=== PATIENT | male | born 1955 | race Caucasian/White ===

== ENCOUNTER 2019-01-24 11:15 | Emergency (ER) | payer MEDICARE, SELFPAY ==
[2019-01-24] VITALS (9 sets, daily range): BP systolic 113–161; BP diastolic 74–93; PULSE 68–83; RESP 13–18; TEMP 36.9; O2SAT 95–99; BMI 30.5
--- NOTE | 2019-01-24 11:40 | CT_ITS ---
STUDY: CT BRAIN WITHOUT CONTRAST REASON FOR EXAM: Male, 63 years old. Headaches and double vision. Recent fall. RADIATION DOSAGE (If Supplied By Facility): CTDIvol = ( 44.99 ) mGy, DLP = ( 812.98 ) mGycm TECHNIQUE: Transaxial CT imaging of the brain was performed without administration of intravenous contrast material. Individualized dose optimization techniques were used for this CT. COMPARISON: Comparison is made with prior study dated November 04, 2009. FINDINGS: Normal soft tissue structures. Normal calvarium. Normal size ventricles and extra-axial spaces for the patient's age. Normal white matter tracts of the cerebral hemispheres. Stable tiny lacunar in the insular cortex of the left temporal lobe. Normal brainstem. Normal cerebellum. There is no intracranial hemorrhage. There are no findings of an acute ischemic infarction. Normal visualized paranasal sinuses. CT/Brain/Head without Contrast IMPRESSION: Stable tiny lacunar in the insular cortex of the left temporal lobe. Electronically Signed: Neymar Durand, at 12:43 EST , Service support ,
[2019-01-24 12:55] LABS: Absolute Lymphocyte Count 1.52 X10^3/ul (0.83-4.51); Absolute Neutrophil Count 3.8 X10^3/uL (2.0-7.7); Basophil# 0.02 X10^3/uL; Basophil% 0.3 % (0-1); Eosinophil# 0.06 X10^3/uL; Hemoglobin 14.3 g/dl (13.0-16.5); Lymphocyte # 1.52 X10^3/ul (4.0); Lymphocyte % 26.5 % (19-41); Mean Corp Hgb Conc 32.5 g/gl (32-36); Mean Corpuscular Hgb 29.9 pg (27.0-32.0); Mean Corpuscular Volume 92.1 fL (80-94); Mean Platelet Vol. 11.5 fl (6.2-12.0); Monocyte# 0.31 X10^3/uL; Monocyte% 5.4 % (0-10); Neutrophil # 3.81 X10^3/uL (2.7-7.7); Neutrophil % 66.6 % (47-70); Platelet Count 225 K/mm3 (150-450); RBC Distribution Width CV 15.8 % (11.6-14.6); RBC Distribution Width SD 53.4 fl (35.1-43.9); Red Blood Count 4.78 M/mm3 (4.6-6.2); White Blood Count 5.7 K/mm3 (4.4-11.0)
[2019-01-24 12:56] LABS: POSITIVE COUNT NO; POSITIVE DIFFERENTIAL NO; POSITIVE MORPHOLOGY NO
[2019-01-24 13:07] LABS: Anion Gap 9 (5-15); BUN 10 mg/dL (7-18); BUN/Creat Ratio 9.2 RATIO (10-20); Calcium,Total 8.8 mg/dL (8.5-10.1); Chloride 106 mmol/L (98-107); Creatinine, Serum 1.09 mg/dL (0.70-1.30); EST Glomerular Filtration Rate 73 mL/min (>60); Est Glom Filt Rate - Afr Amer 88 mL/min (>60); Estimated Creatinine Clearance 76.14 ml/min; Glucose 83 mg/dL (74-106); Potassium 4.2 mmol/L (3.5-5.1); Sodium Level 143 mmol/L (136-145)
[2019-01-24 13:36] LABS: Valproic Acid (Depakene) Level 72 ug/mL (50-100)
--- NOTE | 2019-01-24 15:10 | ED.DCSUM_ITS ---
- ER Visit Summary Date of Service: 01/24/19 Chief Complaint: Double vision History of Present Illness: The patient is a 63 M who tells me that approximately 2 weeks ago he fell and hit his head on some ice. No loss of consciousness. He states he was doing okay but a few days later began to have blurred vision. He went to the eye doctor and was prescribed glasses. He went to picker operator the glasses today but states that on his way there he had a drive with one eye closed because he was having double vision. When he got to their office he tells me that he was having a difficult time walking and that he was stumbling. He was advised by the eye doctor staff to go to the emergency room. He has a history of bipolar disorder is on Depakote. Physical Examination: Afebrile vital signs are stable Gen: Well-nourished well-developed Head: Normocephalic atraumatic Eyes: Perrl EOMI ENT: TMs clear no rhinorrhea moist mucous membranes Neck: Supple no lymphadenopathy no JVD nontender CVS: Regular rate rhythm no murmurs normal S1-S2 Respiratory: No distress clear to auscultation bilaterally chest nontender Abdomen: Soft nontender nondistended normal bowel sounds no masses Back: Nontender Extremity: Nontender no edema Skin: Normal color no rash Neuro: alert orientated ?3 CN II-XII intact normal strength sensation reflexes there is a slight ataxia with finger to nose but patient completes the task. Psych: Normal affect normal mood Test Results: CT brain shows no intracranial hemorrhage or fracture. CBC and chemistries were normal. Valproic acid 72. Emergency Department Course and Treatment: Patient was reassessed. His double vision has resolved. We got the patient up to walk him. He is doing better. I spoke with on-call neurology who would recommend a CTA of the head and neck and MRI of the brain. If negative patient will be discharged. Impression: 1. Postconcussive syndrome 2. Ataxia This note was generated with [employer] dictation software. It may contain incorrect words, spelling, and punctuation that were not noted in review of the chart prior to signing <Israel Dickerson - Last Filed: 01/24/19 16:20> - ER Visit Summary Date of Service: 01/24/19 The patient was checked out to me by Dr. Geller with CT and MRI pending. Test Results: CTA head shows no acute disease. CTA neck shows 50 to less than 50% stenosis of the right internal carotid artery. Minimal punctate plaque formation left internal carotid artery without stenosis. MRI of brain shows no acute disease. 5 mm avert Calderol been versus old lacunar infarct in the basal ganglia. Emergency Department Course and Treatment: Patient is resting comfortably without complaint. Treatment Plan: Patient will be discharged with instructions to follow-up his primary care physician 1 week for another exam. Return to the emergency department for any worsening symptoms. Disposition: To home in improved and stable condition. Impression: 1. Postconcussive syndrome. This note was generated with [employer] dictation software. It may contain incorrect words, spelling, and punctuation that were not noted in review of the chart prior to signing <Damian Pike - Last Filed: 01/24/19 18:52> ED Disposition <Israel Dickerson - Last Filed: 01/24/19 16:20> <Damian Pike - Last Filed: 01/24/19 18:52> - Plan for ED Patient: Disposition: Home or Assisted Living Instructions: ED Concussion Referrals: Husam Matt MD [STAFF PHYSICIAN] - As soon as possible
--- NOTE | 2019-01-24 15:49 | MRI_ITS ---
STUDY: MRI BRAIN WITHOUT CONTRAST REASON FOR EXAM: Male, 63 years old. Vertigo, diplopia TECHNIQUE: Standardized multiplanar fat and water weighted pulse sequences were obtained. COMPARISON: CT same day. FINDINGS: Normal size of the ventricles and extra-axial spaces for the patient's age. Normal white matter tracts of the supratentorial brain. There is no evidence for restricted diffusion. There is 5 mm small cystic density within the left basal ganglia. Normal thalami. There is no extra-axial fluid accumulation. Normal flow voids within the major intracranial circulation suggesting patency by spin echo criteria. Normal sella turcica, pituitary gland, infundibular stalk, optic chiasm and hypothalamus. Normal tectal plate and pineal gland. Normal midbrain, derek and medulla. Normal cerebellum. Normal basal cisterns. Normal bilateral temporal bones. Normal bilateral internal auditory canals. No demonstrated orbital abnormality, within the constraints of a routine brain study. Normal visualized paranasal sinuses. Normal calvarium and skull base. Normal visualized soft tissue structures. Normal visualized upper cervical spine. MRI/Brain without Contrast IMPRESSION: No MRI evidence for acute infarct 5 mm Virchow-Mendoza space versus old lacunar infarct within the basal ganglia Electronically Signed: Elier Rouse, at 18:06 EST Tel , Service support ,
--- NOTE | 2019-01-24 15:50 | CT_ITS ---
STUDY: CTA OF THE BRAIN REASON FOR EXAM: Male, 63 years old. Axial headaches intermittent double vision since fall 2 weeks ago RADIATION DOSAGE (If Supplied By Facility): CTDIvol = ( 23.92 ) mGy, DLP = ( 800.98 ) mGycm TECHNIQUE: CT angiography was performed with a multi-detector CT scanner. Data acquisition was obtained from the skull base through the vertex following intravenous administration of Isovue 370 100CC IV. MIP images were reconstructed from the axial data set. Post-processing of the angiographic images was performed, with multiplanar reformation and 3D reconstruction. Standard reconstructed images were requested but not provided. Individualized dose optimization techniques were used for this CT. COMPARISON: January 24, 2019 CT head FINDINGS: Normal bilateral petrous carotid arteries. Normal right cavernous carotid artery with a normal supraclinoid bifurcation. Normal left cavernous carotid artery with a normal supraclinoid bifurcation. Normal right A1 segments of the anterior cerebral artery. Normal left A1 segments of the anterior cerebral artery. Normal intact anterior communicating artery (ACOM). Normal bilateral A2 segments of the anterior cerebral arteries. Normal right M1 and M2 segments of the middle cerebral arteries, with a normal M1 bifurcation. Normal left M1 and M2 segments of the middle cerebral arteries, with a normal M1 bifurcation. 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 There is a persistent origin of the left posterior cerebral artery with absence of the posterior communicating artery (PCOM). Normal bilateral vertebral arteries. Normal basilar artery with a normal basilar bifurcation. The visualized bilateral superior cerebellar (SCA) arteries are normal. Normal bilateral P1, P2 and visualized P3 segments of the posterior cerebral arteries. There is no demonstrated aneurysm of the [place]. There is an old left-sided basal ganglia lacunar infarct. CT/CTA Head W/WO Contrast IMPRESSION: Normal [place] without a demonstrated aneurysm or hemodynamically significant stenosis. Electronically Signed: Zeinab Michael MD at 18:22 EST Tel , Service support ,
--- NOTE | 2019-01-24 15:50 | CT_ITS ---
STUDY: CTA NECK WITH CONTRAST REASON FOR EXAM: Male, 63 years old. Ataxia RADIATION DOSAGE (If Supplied By Facility): CTDIvol = ( 23.92 ) mGy, DLP = ( 800.98 ) mGycm TECHNIQUE: CT angiography with multi-detector data acquisition was performed from the aortic arch to the skull base following intravenous administration of Isovue 370 100cc IV. MIP images were reconstructed from the axial data set. Post-processing of the angiographic images was performed, with multiplanar reformation and 3D reconstruction. Individualized dose optimization techniques were used for this CT. COMPARISON: None. FINDINGS: AORTIC ARCH: Normal visualized aortic arch. Normal origins of the brachiocephalic, left common carotid, and left subclavian arteries. RIGHT CAROTID ARTERIES: Normal right common carotid artery (CCA). There is mild atherosclerotic plaque formation with minimal narrowing of the right carotid bulb. There is mild atherosclerotic plaque formation of the origin of the right internal carotid artery with less than 50% cross sectional diameter stenosis. Normal visualized cervical portion of the right internal carotid artery. Normal origin of the right external carotid artery (ECA). LEFT CAROTID ARTERIES: Normal left common carotid artery (CCA). There is mild atherosclerotic plaque formation with minimal narrowing of the left carotid bulb. Normal origin of the left internal carotid (ICA) artery without a hemodynamically significant stenosis. Normal visualized cervical portion of the left internal carotid artery. Normal origin of the left external carotid artery (ECA). VERTEBRAL ARTERIES: Normal bilateral vertebral arteries. There is visualized degenerative change in the cervical spine. There is a spinal fusion C4 C5 C6. CT/CTA Neck W/WO Contrast IMPRESSION: Less than 50% stenosis of the right internal carotid artery. Minimal punctate plaque formation without stenosis of the left internal carotid artery. Visualized cervical spine fusion C4-C6. Electronically Signed: Zeinab Michael MD at 17:15 EST Tel , Service support ,
== END 2019-01-24 19:12 | disposition home or self-care (01) ==
PROVIDERS: Emergency Provider Emergency Medicine; Family Provider Family Medicine; PCP Family Medicine
DX: F07.81 Postconcussional syndrome (principal); R27.0 Ataxia, unspecified; F31.9 Bipolar disorder, unspecified; K21.9 Gastro-esophageal reflux disease without esophagitis; Z91.81 History of falling
CPT/HCPCS: 70450; 70496; 70498; 70551; 80048; 80164; 85025; 99283; Q9967; A4216

== ENCOUNTER 2019-03-27 11:18 | Emergency (ER) | payer MEDICARE, SELFPAY ==
[2019-01-24 11:16] VITALS: BMI 30.5
[2019-03-27 11:19] VITALS: BP 146/102; PULSE 78; RESP 16; TEMP 36.8; O2SAT 98; BMI 29.8
--- NOTE | 2019-03-27 11:57 | RAD_ITS ---
STUDY: X-RAY CHEST REASON FOR EXAM: Male, 63 years old. Dizziness. TECHNIQUE: Single frontal view of the chest. COMPARISON: None. FINDINGS: There is no focal consolidation. Normal size heart. Normal mediastinum and juliane. Normal visualized pulmonary arteries. Normal visualized aortic arch and descending thoracic aorta. Normal visualized thoracic spine. Normal visualized ribs, clavicles, and shoulders. There is no demonstrated abnormality of the visualized soft tissue structures of the upper abdomen. RAD/Chest 1 View (Portable) IMPRESSION: No acute cardiopulmonary process. Electronically Signed: Nasrin Barnes MD at 12:21 EDT Tel , Service support ,
--- NOTE | 2019-03-27 11:57 | EKG12_ITS ---
Test Reason : DIZZINESS Blood Pressure : / mmHG Vent. Rate : 078 BPM Atrial Rate : 078 BPM P-R Int : 168 ms QRS Dur : 092 ms QT Int : 386 ms P-R-T Axes : 052 002 016 degrees QTc Int : 440 ms Normal sinus rhythm Inferior infarct , age undetermined Abnormal ECG Confirmed by PEDRO PABLO OSBORNE, STEPHON ([id number]), clinical editor COLE SALEH ([id number]) on 04/01/2019 1:53:30 PM Referred By: ENEIDA Confirmed By:STEPHON CHAMORRO MD
--- NOTE | 2019-03-27 11:58 | CT_ITS ---
STUDY: CT BRAIN WITHOUT CONTRAST REASON FOR EXAM: Male, 63 years old. Dizziness. RADIATION DOSAGE (If Supplied By Facility): CTDIvol = ( 60.81 ) mGy, DLP = ( 1067.08 ) mGycm TECHNIQUE: Transaxial CT imaging of the brain was performed without administration of intravenous contrast material. Individualized dose optimization techniques were used for this CT. COMPARISON: January 24, 2019 FINDINGS: Normal soft tissue structures. Normal calvarium. Normal size ventricles and extra-axial spaces for the patient's age. Normal white matter tracts of the cerebral hemispheres. There is a stable low-attenuation focus within the left basal ganglia. Normal brainstem. Normal cerebellum. There is no intracranial hemorrhage. There are no findings of an acute ischemic infarction. There is mild opacification of the left sphenoid and ethmoid sinuses. CT/Brain/Head without Contrast IMPRESSION: No acute intracranial process. Stable low-attenuation focus within the left basal ganglia consistent with a Virchow-Mendoza space or an old lacunar infarct . Mild opacification of the sphenoid and ethmoid sinuses consistent with a history of sinusitis. Electronically Signed: Nasrin Barnes MD at 13:14 EDT Tel , Service support ,
--- NOTE | 2019-03-27 12:22 | ED.VISSUMM ---
- ER Visit Summary Date of Service: 03/27/19 Chief Complaint: [] Intermittent dizziness for months History of Present Illness: The patient is a 63 M [] patient has a history of head injury in the winter where he fell hit his head he was seen and evaluated with CT scan later MRI of the work-up and scans are unremarkable since that time he indicates he has had intermittent sense of dizziness where he suddenly began spinning sometimes falling to the ground these occur 2 or 3 times a month they can last for a few days he does have bipolar disease he was started on Depakote yesterday first dose was today, he is otherwise not been ill he had no fever no cough no head neck chest or abdominal pain, He reports since yesterday he had a sense of dizziness where when he tries to stand he feels slightly unsteady he fell once he did not injure himself his dizzy spells persisted and he came into trip for evaluation, he does not hit his head he has not been ill in any other way he said no fever no cough he is eating drinking well bowel bladder habits unremarkable no history of stroke or cardiovascular disorder his bipolar disease is stable Physical Examination: [] Vital signs within normal range General, no distress resting comfortably HEENT is generally unremarkable The neck is supple no adenopathy Cardiovascular, regular rate and rhythm Lungs, clear bilateral Abdomen, soft nontender Extremities, no clubbing cyanosis or edema Neurologic, awake alert answering questions appropriately moving all 4 extremities, cranial nerves are normal, no nystagmus with head movement he has full range of motion of his extremities sensations intact speech cognition normal his NIH is 0 Test Results: [] Emergency Department Course and Treatment: [] He assures me he has had this multiple times in the past since the fall he has not followed up with outpatient providers he does have walking devices at home he supposed to use for this process, given all the above screening labs are obtained head CT Treatment Plan: [] Patient screening labs head CT are negative he did have extensive prior imaging in the computer including multiple MRIs are unremarkable, His physical exam neurologically unremarkable for him unchanged, Discussed with the patient at this point time his symptoms are something is had long-standing he has been asked to follow-up with his primary care providers he is referred to neurology he will use a cane his walking devices to avoid falling and keep all of his appointment with his providers and return for change in symptoms Disposition: [] Stable home Impression: [] Acute recurrent dizziness This note was generated with [employer] dictation software. It may contain incorrect words, spelling, and punctuation that were not noted in review of the chart prior to signing ED Disposition - Plan for ED Patient: Referrals: Fabián Hurley [Primary Care Provider] -
[2019-03-27] MEDS: 0.9% Normal Saline 1,000 ML 1000 ML IV (12:36)
[2019-03-27 12:48] LABS: Absolute Lymphocyte Count 2.21 X10^3/ul (0.83-4.51); Absolute Neutrophil Count 3.8 X10^3/uL (2.0-7.7); Basophil# 0.03 X10^3/uL; Basophil% 0.5 % (0-1); Eosinophil# 0.11 X10^3/uL; Eosinophils% 1.7 % (0-5); Hematocrit 44.7 % (40-54); Hemoglobin 15.1 g/dl (13.0-16.5); Lymphocyte # 2.21 X10^3/ul (4.0); Lymphocyte % 33.6 % (19-41); Mean Corp Hgb Conc 33.8 g/gl (32-36); Mean Corpuscular Hgb 30.9 pg (27.0-32.0); Mean Corpuscular Volume 91.4 fL (80-94); Mean Platelet Vol. 11.4 fl (6.2-12.0); Monocyte# 0.46 X10^3/uL; Neutrophil # 3.75 X10^3/uL (2.7-7.7); Platelet Count 244 K/mm3 (150-450); RBC Distribution Width CV 15.6 % (11.6-14.6); RBC Distribution Width SD 52.6 fl (35.1-43.9); Red Blood Count 4.89 M/mm3 (4.6-6.2); White Blood Count 6.6 K/mm3 (4.4-11.0)
[2019-03-27 12:51] LABS: POSITIVE COUNT NO; POSITIVE DIFFERENTIAL NO; POSITIVE MORPHOLOGY NO
[2019-03-27 13:11] LABS: Anion Gap 6 (5-15); BUN 10 mg/dL (7-18); BUN/Creat Ratio 9.4 RATIO (10-20); Calcium,Total 9.1 mg/dL (8.5-10.1); Chloride 105 mmol/L (98-107); Creatinine, Serum 1.06 mg/dL (0.70-1.30); EST Glomerular Filtration Rate 75 mL/min (>60); Est Glom Filt Rate - Afr Amer 91 mL/min (>60); Estimated Creatinine Clearance 78.29 ml/min; Glucose 80 mg/dL (74-106); Potassium 4.4 mmol/L (3.5-5.1); Sodium Level 142 mmol/L (136-145)
[2019-03-27 13:23] LABS: Valproic Acid (Depakene) Level 66 ug/mL (50-100)
--- NOTE | 2019-03-27 15:10 | ED.DEP ---
ED Disposition - Plan for ED Patient: Instructions: ED Dizziness [facility] Referrals: Fabián Hurley [Primary Care Provider] - Jignesh Redding MD [STAFF PHYSICIAN] -
[2019-03-27 15:51] VITALS: BP 170/92; PULSE 79; RESP 15; O2SAT 98
== END 2019-03-27 15:52 | disposition home or self-care (01) ==
LOC: ED 13:36
PROVIDERS: Emergency Provider Emergency Medicine; Family Provider Family Medicine; PCP Family Medicine
DX: R42 Dizziness and giddiness (principal)
CPT/HCPCS: 70450; 71045; 80048; 80164; 84484; 85025; 93005; 99284

== ENCOUNTER 2021-02-03 07:59 | Outpatient (RCR) | payer MEDICARE, SELFPAY ==
[2021-02-03] MEDS: COVID-19 VACC, MRNA(PFIZER)/PF 30 MCG/0.3 ML SYRINGE IM (16:24)
[2021-02-24] MEDS: COVID-19 VACC, MRNA(PFIZER)/PF 30 MCG/0.3 ML SYRINGE IM (16:08)
== END 2021-05-03 23:59 ==
LOC: IMMUN 07:59
PROVIDERS: PCP Family Medicine; Referring Provider Family Medicine; Visit Provider Family Medicine
DX: Z23 Encounter for immunization (principal)
CPT/HCPCS: 0001A; 0002A; 91300

== ENCOUNTER 2022-09-22 08:37 | Day surgery (SDC) | payer MEDICARE, SELFPAY ==
[2022-09-22] VITALS (10 sets, daily range): BP systolic 123–150; BP diastolic 79–95; PULSE 70–100; RESP 16–19; TEMP 36.6–37.4; O2SAT 97–100; BMI 20.3
--- NOTE | 2022-09-22 | ESO_PTH ---
PATIENT: SADIQ YI Jr. LOC: [facility] [place] U[place][id number] AGE/SX: 66/M ROOM: RE09/22/[address]: Dr. Lior Lira DO : 1955 BED: DIS: 09/22/2022 SPEC #: [id number] RECD: 09/22/22 17:37 STATUS: EDDIE REQ #: [id number] MEGAN: 09/22/22 00:[address]: Lior Lira DEPT: SURGICAL PATHOLOGY RECD BY: Trip Stone ENTERED: 09/25/22 07:23 SP TYPE: [place]ENCA DR: Dr. Fabián Hurley DO Tissues: Esophagus, NOS Procedures: Special Stain Group II Special Stain Group I Surgery Specimen Level IV GMS Stain (control) Alcian Blue/PAS (control) HEADER OPERATION: EGD (MAC), removal foreign body PRE-OP DIAGNOSIS: Foreign body TISSUE SUBMITTED: Distal esophagus biopsy MICROSCOPIC DIAGNOSIS Distal esophagus, biopsy: Gastroesophageal junctional mucosa with ulceration and associated acute and chronic inflammation and fibrinopurulent material. Negative for fungal organisms. No evidence of goblet cell metaplasia. See comment. AM:bethel 09/26/2022 COMMENT GMS stain with matched control was used in the evaluation of this case. Alcian blue/PAS stain with matched control supports the above diagnosis. MICROSCOPIC DESCRIPTION Slides are reviewed. GROSS DESCRIPTION Received in fixative is one container labeled with the patient's name and designated distal esophagus. The specimen consists of multiple irregular fragments of light rashid soft tissue that in aggregate measure 1 x 0.3 x 0.1 cm. The specimen is totally submitted in one cassette. / AM:bethel 09/25/2022 TC:2 CPT: 73096, 21092, 55596
--- NOTE | 2022-09-22 09:37 | EDS_ITS ---
HPI HPI - GI History of Present Illness Chief Complaint: Foreign Body Informant: patient Abdominal Pain/Flank Pain Onset: Yesterday Context: Sudden Onset Timing: Continuous Quality: Sharp Location: - (Chest) Worsened by: Food Relieved by: Nothing Nausea/Vomiting/Emesis GI Symptom: Positive for Nausea and Vomiting Diarrhea/Melena/Hematochezia GI Symptom: Negative for Diarrhea, Melena or Hematochezia Associated Symptoms Associated Symptoms: Negative for Dysuria, Frequency or Hematuria Narrative Narrative: Patient presents with esophageal foreign body that began last night. Patient states he felt like food got stuck while he was eating dinner last night. Patient states he has had this happen to him in the past. Patient states he last saw a safe and vault installer in [place]. Patient does not have a safe and vault installer here. Patient states his pain is worse with swallowing. Patient states he has been having some nausea and vomiting but still feels like there is food stuck in his esophagus. Patient describes the pain as sharp. Patient denies any fevers or chills. Patient denies any shortness of breath. PFSH PFS Medical History (Updated 09/22/22 @ 11:[address] Vargas Meyer DO) Bipolar disorder Home Medications lamotrigine 200 mg tablet 200 mg PO BID 03/27/19 [History Last Taken Unknown] lorazepam 1 mg tablet See Rx Instructions .Route .COMPLEX PRN Anxiety 03/27/19 [History Last Taken Unknown] trazodone 100 mg tablet 100 mg PO QHS 03/27/19 [History Last Taken Unknown] benztropine 1 mg tablet 1 mg PO BID 09/22/22 [History Last Taken Unknown] olanzapine 15 mg tablet 10 mg PO DAILY 09/22/22 [History Last Taken Unknown] Allergy/AdvReac Type Severity Reaction Status Date / Time No Known Allergies Allergy Verified 09/22/22 08:37 Surgical History History of back surgery Hx of neck surgery Hx of total knee replacement Status post ORIF of fracture of ankle Social History Smoking Status: Former smoker ROS ROS ED Constitutional Constitutional ED: Denies chills or fever(s) Eyes Eyes: Denies blurry vision or change in vision ENT ENT ED: Reports rhinorrhea; Denies sore throat Cardiovascular Cardiovascular: Reports chest pain; Denies palpitations Respiratory/Chest Respiratory/Chest: Denies cough or dyspnea Gastrointestinal Gastrointestinal: Reports nausea and vomiting Genitourinary Genitourinary ED: Denies dysuria or hematuria Musculoskeletal Musculoskeletal: Denies back pain or neck pain Integumentary Denies abscess or rash Neurologic Neurologic: Denies headache(s) or weakness Allergic/Immunologic Allergic/Immunologic ED: Denies mouth swelling or urticaria EXAM Physical Exam Const Vital Signs: 09/22/22 08:38 09/22/22 10:30 Temperature 97.8 F Temperature Source Temporal Pulse Rate 100 78 Respiratory Rate 16 17 Blood Pressure 124/85 H 123/81 H Blood Pressure Mean 98 95 Pulse Ox 97 98 Oxygen Delivery Method Room Air Room Air Positive well nourished and well developed General Appearance ED: well developed HEENT Reports moist mucous membranes Neck supple and no JVD Resp normal respiratory effort and clear to auscultation bilaterally Cardio regular rate, regular rhythm and no murmurs GI normal to inspection, nondistended, normoactive bowel sounds and non-tender Palpation: soft Extremity normal to inspection General Extremety ED: Negative for edema or tenderness General Extremity: Negative for edema Neuro oriented x3, CN's II-XII intact bilaterally and no sensory deficits noted Sensorium / Orientation: alert Motor Exam: strength 5/5 throughout Psych mental status grossly normal Skin no rashes or lesions noted MDM MDM MDM Narrative Medical decision making narrative: Patient was given a dose of glucagon here. CBC was within normal limits. Comprehensive metabolic profile was essentially within normal limits. Portable chest x-ray was obtained. There is 1 view. On my interpretation, there is no acute cardiopulmonary process. There is some hyperinflation noted. Radiologist also interpreted the x-rays and agrees. Patient states he started to feel better after the glucagon. Patient tried to drink water and then vomited it back up. Case was discussed with Dr. Lira from gastroenterology. He will take the patient to endoscopy for an upper endoscopy. Patient understood and was agreeable with the plan. All questions were answered. Lab Data Attestation: I reviewed the patient's lab results. Labs: Laboratory Results - last 24 hr 09/22/22 09/22/22 09:30 09:30 WBC 8.0 RBC 4.81 Hgb 15.0 Hct 43.1 MCV 89.6 MCH 31.2 MCHC 34.8 RDW Std Deviation 47.7 H RDW Coeff of Caro 14.5 Plt Count 254 MPV 11.9 Immature Gran % (Auto) 0.200 Neut % (Auto) 81.0 H Lymph % (Auto) 13.5 L Dodge % (Auto) 4.7 Eos % (Auto) 0.1 Baso % (Auto) 0.5 Absolute Neuts (auto) 6.5 Absolute Lymphs (auto) 1.08 Nucleated RBC % 0 Sodium 143 Potassium 3.8 Chloride 106 Carbon Dioxide 27.0 Anion Gap 10 BUN 27 H Creatinine 1.19 Estim Creat Clear Calc 58.73 Est GFR (MDRD) Af Amer 79 Est GFR (MDRD) Non-Af 65 BUN/Creatinine Ratio 22.7 H Glucose 96 Calcium 9.5 Total Bilirubin 0.70 AST 15 ALT 19 Alkaline Phosphatase 67 Total Protein 7.9 Albumin 4.2 Globulin 3.7 Albumin/Globulin Ratio 1.1 Radiography Diagnostic Testing: Clinical Impression(s) from Imaging Studies Chest X-Ray 09/22/22 10:10 IMPRESSION: Hyperinflation. The lungs are clear. Electronically Signed: Neymar Durand MD at 10:35 EDT , Discharge Plan Triage Chief Complaint: Foreign Body ED Provider: Vargas Meyer Dx/Rx/DC Orders Clinical Impression: Food impaction of esophagus Prescriptions: No Action lamotrigine 200 MG tablet 200 mg PO BID trazodone 100 MG tablet 100 mg PO QHS lorazepam 1 MG tablet See Rx Instructions .ROUTE .COMPLEX PRN (Reason: Anxiety) Rx Instructions: 1 mg qhs on tues, thurs, sat 0.5 mg sun, mon, fri none on sun olanzapine 15 mg tablet 10 mg PO DAILY benztropine 1 mg Tablet 1 mg PO BID Primary Care Provider: Fabián Hurley Referrals: Fabián Hurley DO [Primary Care Provider] - Friend,DO Lior [Med Staff - Active Staff] - 1-2 Weeks Disposition Disposition: Home, Self Care
[2022-09-22 09:56] LABS: Absolute Lymphocyte Count 1.08 X10^3/uL (0.83-4.51); Absolute Neutrophil Count 6.5 X10^3/uL (2.0-7.7); Basophil# 0.04 X10^3/uL; Basophil% 0.5 % (0-1); Eosinophil# 0.01 X10^3/uL; Eosinophils% 0.1 % (0-5); Hematocrit 43.1 % (40-54); Lymphocyte # 1.08 X10^3/ul (0.83-4.51); Lymphocyte % 13.5 % (19-41); Mean Corp Hgb Conc 34.8 g/dL (32-36); Mean Corpuscular Hgb 31.2 pg (27.0-32.0); Mean Corpuscular Volume 89.6 fL (80-94); Mean Platelet Vol. 11.9 fl (6.2-12.0); Monocyte# 0.38 X10^3/uL; Monocyte% 4.7 % (0-10); NRBC Flagged by Analyzer 0 % (0-5); Neutrophil # 6.49 X10^3/uL (2.7-7.7); Platelet Count 254 K/mm3 (150-450); RBC Distribution Width CV 14.5 % (11.6-14.6); RBC Distribution Width SD 47.7 fl (35.1-43.9); Red Blood Count 4.81 M/mm3 (4.6-6.2)
[2022-09-22] MEDS: Glucagon 1 MG/ML Syringe IV (09:59)
[2022-09-22 10:09] LABS: ALB/GLOB Ratio 1.1 RATIO (0.9-2.4); AST(SGOT) 15 U/L (15-37); Alanine Aminotransfer ALT/SGPT 19 U/L (16-61); Albumin, Serum 4.2 g/dL (3.2-5.0); Alkaline Phosphatase 67 U/L (45-117); Anion Gap 10 (5-15); BUN 27 mg/dL (7-18); BUN/Creat Ratio 22.7 RATIO (10-20); Calcium,Total 9.5 mg/dL (8.5-10.1); Chloride 106 mmol/L (98-107); Creatinine, Serum 1.19 mg/dL (0.70-1.30); EST Glomerular Filtration Rate 65 mL/min (>60); Est Glom Filt Rate - Afr Amer 79 mL/min (>60); Estimated Creatinine Clearance 58.73 ml/min; Globulin 3.7 g/dL (2.2-4.2); Glucose 96 mg/dL (74-106); Potassium 3.8 mmol/L (3.5-5.1); Protein, Total 7.9 g/dL (6.4-8.2); Sodium Level 143 mmol/L (136-145)
--- NOTE | 2022-09-22 10:10 | RAD_ITS ---
STUDY: X-RAY CHEST REASON FOR EXAM: Male, 66 years old. Chest pain TECHNIQUE: Single AP portable view of the chest. COMPARISON: Comparison is made with prior examination of 03/27/2019. FINDINGS: EKG electrodes are seen. There is hyperinflation of the lungs consistent with chronic obstructive lung disease (COPD). There is no demonstrated pleural abnormality. Normal size heart. Normal mediastinum and juliane. Normal visualized pulmonary arteries. There is atherosclerotic calcification of the aortic arch with tortuosity. There are diffuse degenerative changes of the visualized thoracic spine. Normal visualized ribs, clavicles, and shoulders. There is no demonstrated abnormality of the visualized soft tissue structures of the upper abdomen. RAD/Chest 1 View (Portable) IMPRESSION: Hyperinflation. The lungs are clear. Electronically Signed: Neymar Durand MD at 10:35 EDT ,
--- NOTE | 2022-09-22 12:45 | ED.RN ---
AC updated this RN that pt.'s endoscopy is estimated to be done after office hours at approx. 1600.
[2022-09-22] MEDS: Lactated Ringers 1,000 ML 15 ML IV (14:18)
--- NOTE | 2022-09-22 17:26 | OP.EGD_ITS ---
Patient Name: Isaiah Burton Procedure Date: 09/22/2022 3:44 PM Date of : 1955 Age: 66 Procedure: Upper GI endoscopy Indications: Dysphagia Providers: Lior Lira DO Medicines: Monitored Anesthesia Care Patient Profile: This is a 66 year old male. Refer to note in patient chart for documentation of history and physical. Patient has symptoms of acute dysphagia. Complications: No immediate complications. Procedure: Pre-Anesthesia Assessment: - Prior to the procedure, a History and Physical was performed, and patient medications and allergies were reviewed. The risks and benefits of the procedure and the sedation options and risks were discussed with the patient. All questions were answered and informed consent was obtained. Patient identification and proposed procedure were verified by the physician in the pre-procedure area. Mental Status Examination: alert and oriented. Airway Examination: normal oropharyngeal airway and neck mobility. Respiratory Examination: clear to auscultation. CV Examination: normal. Prophylactic Antibiotics: The patient does not require prophylactic antibiotics. Prior Anticoagulants: The patient has taken no previous anticoagulant or antiplatelet agents. After reviewing the risks and benefits, the patient was deemed in satisfactory condition to undergo the procedure. The anesthesia plan was to use monitored anesthesia care (MAC). Immediately prior to administration of medications, the patient was re-assessed for adequacy to receive sedatives. The heart rate, respiratory rate, oxygen saturations, blood pressure, adequacy of pulmonary ventilation, and response to care were monitored throughout the procedure. The physical status of the patient was re-assessed after the procedure. After obtaining informed consent, the endoscope was passed under direct vision. Throughout the procedure, the patient's blood pressure, pulse, and oxygen saturations were monitored continuously. The Endoscope was introduced through the mouth, and advanced to the second part of duodenum. The upper GI endoscopy was accomplished without difficulty. The patient tolerated the procedure well. Scope In: 4:36:26 PM Scope Out: 5:17:09 PM Total Procedure Duration Time 0 hours 40 minutes 43 seconds Findings: Multiple areas of ectopic gastric mucosa were found in the upper third of the esophagus. Food was found in the middle third of the esophagus. Removal of food was accomplished. Verification of patient identification for the specimen was done. Estimated blood loss was minimal. LA Grade C (one or more mucosal breaks continuous between tops of 2 or more mucosal folds, less than 75% circumference) esophagitis with no bleeding was found 36 to 39 cm from the incisors. Biopsies were taken with a cold forceps for histology. Verification of patient identification for the specimen was done. Estimated blood loss was minimal. A obstructing Schatzki ring was found in the lower third of the esophagus. A TTS dilator was passed through the scope. Dilation with an 18-19-20 mm balloon dilator was performed to 18 mm. The dilation site was examined following endoscope reinsertion and showed moderate improvement in luminal narrowing. Estimated blood loss was minimal. A medium-sized hiatal hernia was present. The duodenal bulb was normal. Impression: - Ectopic gastric mucosa in the upper third of the esophagus. - Food in the middle third of the esophagus. Removal was successful. - LA Grade C reflux esophagitis. Biopsied. - Obstructing Schatzki ring. Dilated. - Medium-sized hiatal hernia. - Normal duodenal bulb. Recommendation: - Discharge patient to home. - Clear liquid diet today. - Continue present medications. - Await pathology results. - Repeat upper endoscopy in 1 month to assess disease activity. - Return to GI office. Procedure Code(s): --- Professional --- 32965, Esophagogastroduodenoscopy, flexible, transoral; with removal of foreign body(s) 17221, 51, Esophagogastroduodenoscopy, flexible, transoral; with transendoscopic balloon dilation of esophagus (less than 30 mm diameter) 86608, 59, Esophagogastroduodenoscopy, flexible, transoral; with biopsy, single or multiple CPT copyright 2017 [employer]. All rights reserved. The codes documented in this report are preliminary and upon manager heart failure review may be revised to meet current compliance requirements. Lior Lira DO 09/22/2022 5:26:02 PM This report has been signed electronically. Number of Addenda: 0 Note Initiated On: 09/22/2022 3:44 PM
--- NOTE | 2022-09-22 17:26 | OP.CCLET_ITS ---
09/22/2022 Fabián Hurley Re : Upper GI endoscopy procedure for Isaiah Burton Jose Hurley This procedure was performed on Thursday, September 22, 2022. My impressions and recommendations are as follows: Impressions : - Ectopic gastric mucosa in the upper third of the esophagus. - Food in the middle third of the esophagus. Removal was successful. - LA Grade C reflux esophagitis. Biopsied. - Obstructing Schatzki ring. Dilated. - Medium-sized hiatal hernia. - Normal duodenal bulb. Recommendations : - Discharge patient to home. - Clear liquid diet today. - Continue present medications. - Await pathology results. - Repeat upper endoscopy in 1 month to assess disease activity. - Return to GI office. My findings are described in the full procedure note, which is enclosed. If I can be of further assistance, please feel free to contact me at . Sincerely, Lior Lira, 09/22/2022 5:26:02 PM This report has been signed electronically.
== END 2022-09-22 18:10 | disposition home or self-care (01) ==
LOC: ED 11:33 → SDC 13:15 → AC 13:50
PROVIDERS: Emergency Provider Emergency Medicine; PCP Family Medicine; Visit Provider Internal Medicine Gastroenterology
PROC: 0DJ08ZZ Inspection of Upper Intestinal Tract, Via Natural or Artificial Opening Endoscopic (ICD-10-PCS; CPT 43235; principal; 2022-09-22 15:55)
DX: T18.108A Unspecified foreign body in esophagus causing other injury, initial encounter (principal); F31.9 Bipolar disorder, unspecified; K44.9 Diaphragmatic hernia without obstruction or gangrene; R11.2 Nausea with vomiting, unspecified; R13.10 Dysphagia, unspecified; K21.00 Gastro-esophageal reflux disease with esophagitis, without bleeding; Z87.891 Personal history of nicotine dependence
CPT/HCPCS: 43249; 43247; 43239; 71045; 80053; 85025; 88305; 88312; 88313; 99284; J7120; A4216; J1610; J2405

== ENCOUNTER → 2023-02-01 | Outpatient (CLI) | payer MEDICARE, SELFPAY ==
[2023-02-01 10:34] LABS: Absolute Lymphocyte Count 1.09 X10^3/uL (0.83-4.51); Absolute Neutrophil Count 4.8 X10^3/uL (2.0-7.7); Basophil# 0.03 X10^3/uL; Basophil% 0.5 % (0-1); Eosinophil# 0.01 X10^3/uL; Eosinophils% 0.2 % (0-5); Hematocrit 43.1 % (40-54); Lymphocyte # 1.09 X10^3/ul (0.83-4.51); Lymphocyte % 17.1 % (19-41); Mean Corp Hgb Conc 32.5 g/dL (32-36); Mean Corpuscular Hgb 30.1 pg (27.0-32.0); Mean Corpuscular Volume 92.7 fL (80-94); Mean Platelet Vol. 11.8 fl (6.2-12.0); Monocyte# 0.41 X10^3/uL; Monocyte% 6.4 % (0-10); NRBC Flagged by Analyzer 0 % (0-5); Neutrophil % 75.3 % (47-70); Platelet Count 247 K/mm3 (150-450); RBC Distribution Width CV 15.2 % (11.6-14.6); Red Blood Count 4.65 M/mm3 (4.6-6.2); White Blood Count 6.4 K/mm3 (4.4-11.0)
[2023-02-01 11:19] LABS: AST(SGOT) 22 U/L (15-37); Alanine Aminotransfer ALT/SGPT 31 U/L (16-61); Albumin, Serum 4.3 g/dL (3.2-5.0); Alkaline Phosphatase 55 U/L (45-117); Bilirubin, Direct 0.13 mg/dL (0.00-0.30); Globulin 3.5 g/dL (2.2-4.2); Protein, Total 7.8 g/dL (6.4-8.2)
[2023-02-01 11:42] LABS: HIV - WCH Non-Reactive (Nonreactive); Hepatitis B Surface Antibody Reactive; Hepatitis B Surface Antigen Non-Reactive (Nonreactive)
[2023-02-03 15:07] LABS: QNTFERON TB Mitogen Value > 10.00 IU/mL (.); QNTFERON TB Nil Value 0.03 IU/mL (.); QNTFERON TB1+ Ag Value 0.01 IU/mL (.); QNTFERON TB2+ Ag Value 0.02 IU/mL (.)
[2023-02-03 15:17] LABS: Hepatitis B Core Ab Total Positive (Negative); QNTIFERON TB Positive Criteria Negative (Negative)
[2023-02-03 20:08] LABS: HCV Quant. RNA PCR HCV Not Detected IU/mL (.)
== END | disposition home or self-care (01) ==
PROVIDERS: PCP Family Medicine; Visit Provider Dermatology
DX: L40.0 Psoriasis vulgaris (principal); L40.8 Other psoriasis; Z79.899 Other long term (current) drug therapy; L85.3 Xerosis cutis
CPT/HCPCS: 36415; 80076; 85025; 86480; 86703; 86704; 86706; 87340; 87522

== ENCOUNTER 2023-02-08 07:27 | Day surgery (SDC) | payer MEDICARE, SELFPAY ==
[2023-02-08] VITALS (7 sets, daily range): BP systolic 105–147; BP diastolic 73–99; PULSE 58–75; RESP 14–106; TEMP 36.3–36.9; O2SAT 95–100; BMI 21.9
--- NOTE | 2023-02-08 | GASB_PTH ---
PATIENT: SADIQ YI Jr. LOC: EN U#:[id number] AGE/SX: 67/M ROOM: RE02/08/[address]: Dr. Lior Lira DO : 1955 BED: DIS: 02/08/2023 SPEC #: [id number] RECD: 02/08/23 11:39 STATUS: EDDIE REAnnette #: [id number] MEGAN: 02/08/23 00:[address]: Lior Lira DEPT: SURGICAL PATHOLOGY RECD BY: Trip Stone ENTERED: 02/08/23 11:39 SP TYPE: Gastric Bx OTHR DR: Dr. Fabián Hurley DO Tissues: Gastric mucous membrane Procedures: Special Stain Group II Surgery Specimen Level IV Alcian Blue/PAS (control) HEADER OPERATION: EGD ([facility] [place]), biopsy, dilatation PRE-OP DIAGNOSIS: GERD, constipation, dysphagia TISSUE SUBMITTED: Gastric inlet biopsy MICROSCOPIC DIAGNOSIS Gastric inlet, biopsy: Gastroesophageal junctional mucosa with mild chronic inflammation. No evidence of goblet cell metaplasia. See comment. AM:bethel 02/09/2023 COMMENT Alcian blue/PAS stain with matched control supports the above diagnosis. MICROSCOPIC DESCRIPTION Slides are reviewed. GROSS DESCRIPTION Received in fixative is one container labeled with the patient's name and designated biopsy gastric inlet. The specimen consists of two irregular fragments of light rashid soft tissue that in aggregate measure 0.6 x 0.4 x 0.1 cm. The specimen is totally submitted in one cassette. / SJ:bethel 02/08/2023 TC:3 CPT: 75061, 47483
[2023-02-08] MEDS: Lactated Ringers 1,000 ML 15 ML IV (07:50)
--- NOTE | 2023-02-08 08:10 | PCM.HP.BLA ---
History and Physical Date of Admission: 02/08/23 66 M who presents to the office today for f/u ED visit for food impaction of esophagus; Dr Lira took pt to endoscopy and removed the impaction. He also dilated an obstructing Schatzki ring. EGD showed LA Grade C reflux esophagitis, medium sized hiatal hernia. He is taking pantoprazole 40 mg BID now. Doing much better since EGD. Still has some trouble swallowing, especially meat. Two episodes since his ED visit when food briefly stuck in esophagus, his gives him cola then which solves the problem. Never gets acid reflux or heartburn. Has care home constipation, takes metamucil which helped initially. Only has BM 1-2x per week, has to strain. Type 2 on Bartley Stool Scale. No melena or hematochezia. Hx diverticulitis. No abd pain. 09/22/22 EGD Impression: ? 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 the esophagus. ? - Food in the middle third of the esophagus. ? Removal was successful. ? - LA Grade C reflux esophagitis. Biopsied. ? - Obstructing Schatzki ring. Dilated. ? - Medium-sized hiatal hernia. ? - Normal duodenal bulb. MICROSCOPIC DIAGNOSIS Distal esophagus, biopsy: Gastroesophageal junctional mucosa with ulceration and associated acute and chronic inflammation and fibrinopurulent material. ?Negative for fungal organisms. ?No evidence of goblet cell metaplasia ROS Const Constitutional: Positive for fatigue, weakness and weight change; No fever(s), frequent falls or headache(s) ENT ENT: Positive for difficulty swallowing; No headache(s) Cardio Cardiology: Positive for leg pain with exertion Gastro GI: Positive for bloating, constipation, heartburn and difficulty swallowing; No abdominal pain, change in bowel habits, diarrhea, Vomiting blood/hematemesis, Blood in stool, nausea/dyspepsia or vomiting Musc Musculoskeletal: Positive for joint pain, back pain, muscle weakness, numbness, stiffness, tingling, restless legs, leg pain at night and leg pain with exertion; No abnormal gait, joint swelling, muscle cramps, Arthritis or sciatica Skin Skin: No dry skin, lesions, itchy eyes or rash Neuro Neurology: Positive for weakness, numbness, tingling and restless legs; No abnormal gait, dizziness, frequent falls, headache(s), tremor(s), Increased tone in limbs, paralysis or seizures Psych Psychiatric: Positive for anxiety, Positive for depression, No paranoia, No Behavioral Problems, No Compulsive Behavior, No hyperactivity, Positive for inattentiveness, No obsessions/compulsions, No Temper Tantrums and No suicidal ideation Endo Endocrine: Positive for fatigue and weight change Aller/Imm Allergy/Immunologic: No itchy eyes Shekhar/Lymp Hematologic/Lymphatic: No easy bleeding or easy bruising Exam Const General: cooperative and comfortable Nutritional Appearance: thin Orientation: alert, awake and oriented x3 Eyes Sclera: sclerae normal Resp Effort & Inspection: normal respiratory effort GI Inspection: normal to inspection Quality Reporting Tobacco Screening ([facility] 138) Smoking Status: Former smoker Assessment and Plan Assessment and Plan (1) GERD (gastroesophageal reflux disease): ?Status:?Acute ?Plan: We reviewed findings from his EGD and biopsy results, has hiatal hernia, reflux esophagitis. Still has some dysphagia. Continue pantoprazole 40 mg BID. Schedule another EGD, may need dilated again. Will also get screening colonoscopy then. For constipation--d/c metamucil, try daily miralax plus 1-3 tsp oil. (2) Constipation: ?Status:?Acute ?Plan: as above (3) Dysphagia: ?Status:?Acute ?Plan: as above ? ? ? Medications: Refilled pantoprazole 40 mg? PO BID 180 tabs 3RF ? ? I have examined the patient and the H&P has been reviewed. There are no clinical changes since date of exam.
--- NOTE | 2023-02-08 08:45 | IMM_PTH ---
PATIENT: SADIQ YI Jr. LOC: EN U#:[id number] AGE/SX: 67/M ROOM: RE02/08/[address]: Dr. Lior Lira DO : 1955 BED: DIS: 02/08/2023 SPEC #: [id number] RECD: 02/08/23 12:38 STATUS: EDDIE REQ #: [id number] EMGAN: 02/08/23 08:[address]: Lior Lira DEPT: IMMUNOHISTOCHEMISTRY RECD BY: Jessica Castellano ENTERED: 02/08/23 12:39 SP TYPE: IMMUNO OTHR DR: Dr. Fabián Hurley DO Tissues: Stomach, NOS Procedures: H Pylori (initial) PHYSICIAN & INSTITUTION [place] [id number] SPECIMEN INFORMATION: Tissue Source: Gastric inlet biopsy Clinical Info: GERD, constipation, dysphagia Specimen Number: [id number] CPT code: 45810 METHODOLOGY: Deparaffinized sections of prefer/formalin-fixed tissue or PAP/DQ stained slides are incubated with monoclonal/polyclonal antibodies/oligonucleotide probes. Localization is made via biotin free immunoperoxidase method. Appropriate controls are performed and reacted as expected. Results on target cell population are indicated in the following table: RESULTS: ANTIBODY / CLONE RESULT H Pylori (polyclonal) negative These tests were developed and their performance characteristics determined by [facility]. They may not have been cleared or approved by the U.S. Food and Drug Administration. The FDA has determined that such clearance or approval is not necessary. The above immunohistochemical/dualISH markers are ordered and reviewed by the Pathologist. INTERPRETATION: Gastric inlet, biopsy: Negative for Helicobacter pylori organisms. AM:bethel 02/09/2023
--- NOTE | 2023-02-08 09:13 | OP.CCLET_ITS ---
02/08/2023 Fabián Hurley Re : Upper GI endoscopy procedure for Isaiah Burton Jose Hurley This procedure was performed on January. My impressions and recommendations are as follows: Impressions : - Ectopic gastric mucosa in the upper third of the esophagus. Biopsied. - Moderate Schatzki ring. Dilated. - Normal stomach. - Normal first portion of the duodenum. Biopsied. Recommendations : - Discharge patient to home. - Resume previous diet. - Continue present medications. - Await pathology results. My findings are described in the full procedure note, which is enclosed. If I can be of further assistance, please feel free to contact me at . Sincerely, Lior Lira DO 02/08/2023 9:13:13 AM This report has been signed electronically.
--- NOTE | 2023-02-08 09:13 | OP.EGD_ITS ---
Patient Name: Isaiah Burton Procedure Date: 02/08/2023 8:53 AM Date of : 1955 Age: 67 Procedure: Upper GI endoscopy Indications: Dysphagia Providers: Lior Lira DO Referring MD: Fabián Hurley Medicines: Monitored Anesthesia Care Patient Profile: This is a 67 year old male. Refer to note in patient chart for documentation of history and physical. Patient has symptoms of chronic dysphagia and dysphagia with solids. He is status post EGD for foreign body removal. Complications: No immediate complications. Procedure: Pre-Anesthesia Assessment: - Prior to the procedure, a History and Physical was performed, and patient medications and allergies were reviewed. The risks and benefits of the procedure and the sedation options and risks were discussed with the patient. All questions were answered and informed consent was obtained. Patient identification and proposed procedure were verified by the physician. Mental Status Examination: alert and oriented. Airway Examination: normal oropharyngeal airway and neck mobility. Respiratory Examination: clear to auscultation. CV Examination: normal. Prophylactic Antibiotics: The patient does not require prophylactic antibiotics. Prior Anticoagulants: The patient has taken no previous anticoagulant or antiplatelet agents. ASA Grade Assessment: II - A patient with mild systemic disease. After reviewing the risks and benefits, the patient was deemed in satisfactory condition to undergo the procedure. The anesthesia plan was to use monitored anesthesia care (MAC). Immediately prior to administration of medications, the patient was re-assessed for adequacy to receive sedatives. The heart rate, respiratory rate, oxygen saturations, blood pressure, adequacy of pulmonary ventilation, and response to care were monitored throughout the procedure. The physical status of the patient was re-assessed after the procedure. After obtaining informed consent, the endoscope was passed under direct vision. Throughout the procedure, the patient's blood pressure, pulse, and oxygen saturations were monitored continuously. The Endoscope was introduced through the mouth, and advanced to the second part of duodenum. The upper GI endoscopy was accomplished without difficulty. The patient tolerated the procedure well. Scope In: 9:01:31 AM Scope Out: 9:07:16 AM Total Procedure Duration Time 0 hours 5 minutes 45 seconds Findings: A single area of ectopic gastric mucosa was found in the upper third of the esophagus, 23 cm from the incisors. Biopsies were taken with a cold forceps for histology. Verification of patient identification for the specimen was done. Estimated blood loss was minimal. A moderate Schatzki ring was found at the cricopharyngeus. A guidewire was placed and the scope was withdrawn. Dilation was performed with a Savary dilator with no resistance at 60 Fr. The dilation site was examined and showed moderate improvement in luminal narrowing. Estimated blood loss was minimal. The entire examined stomach was normal. The cardia and gastric fundus were normal on retroflexion. The first portion of the duodenum was normal. Biopsies were taken with a cold forceps for histology. Verification of patient identification for the specimen was done. Estimated blood loss was minimal. Impression: - Ectopic gastric mucosa in the upper third of the esophagus. Biopsied. - Moderate Schatzki ring. Dilated. - Normal stomach. - Normal first portion of the duodenum. Biopsied. Recommendation: - Discharge patient to home. - Resume previous diet. - Continue present medications. - Await pathology results. Procedure Code(s): --- Professional --- 31803, Esophagogastroduodenoscopy, flexible, transoral; with insertion of guide wire followed by passage of dilator(s) through esophagus over guide wire 95612, 59,51, Esophagogastroduodenoscopy, flexible, transoral; with biopsy, single or multiple CPT copyright 2017 [employer]. All rights reserved. The codes documented in this report are preliminary and upon check weigher review may be revised to meet current compliance requirements. Lior Lira DO 02/08/2023 9:13:13 AM This report has been signed electronically. Number of Addenda: 0 Note Initiated On: 02/08/2023 8:53 AM
== END 2023-02-08 09:54 | disposition home or self-care (01) ==
LOC: EN 07:28 → AC 07:29
PROVIDERS: PCP Family Medicine; Referring Provider Family Medicine; Visit Provider Internal Medicine Gastroenterology
PROC: 0DJ08ZZ Inspection of Upper Intestinal Tract, Via Natural or Artificial Opening Endoscopic (ICD-10-PCS; CPT 43235; principal; 2023-02-08 08:40)
DX: R13.10 Dysphagia, unspecified (principal); K59.00 Constipation, unspecified; K44.9 Diaphragmatic hernia without obstruction or gangrene; Z87.891 Personal history of nicotine dependence; K21.00 Gastro-esophageal reflux disease with esophagitis, without bleeding
CPT/HCPCS: 43239; 43248; 88305; 88313; 88342; J7120; C1769; J2405

== ENCOUNTER → 2023-02-09 | Outpatient (CLI) | payer MEDICARE, SELFPAY | END | disposition home or self-care (01) | PROVIDERS: PCP Family Medicine; Visit Provider Dermatology | DX: Z79.899 Other long term (current) drug therapy (principal) | CPT/HCPCS: 36415 ==

== ENCOUNTER 2023-12-26 06:48 | Day surgery (SDC) | payer MEDICARE, SELFPAY ==
--- OUTSIDE RECORDS SUMMARY | 2023-12-26 06:57 | XMS RPT_ITS | CCD ---
Author Name Unknown Address [address] [place] [address] Organization [facility] Care Team Providers Care [employer] Name Role Phone Dion Hurley Primary Care Provider DION HURLEY Primary Care Unavailable CULLEN GAMINO JR Attending DION Salazar Primary Care Unavailable CULLEN GAMINO JR Referring Unavailable DION HURLEY Primary Care Unavailable CULLEN GAMINO JR Referring Unavailable KIMBERLI BOO Attending Unavailable DION HURLEY Primary Care Unavailable MEI MERRILL, DR ASHLEY Primary Care Physician MICKDARREL YIP Attending Lani HURLEY DO, DR ASHLEY Primary Care Unavailab Maki OSBORNE, DR DEVON Avilez Attending Unavailable MEI MERRILL, DR ASHLEY Primary Care Sandi Gambino MD, DR DEVON Avilez Attending Unavailable MEI MERRILL, DR ASHLEY Primary Care Sandi bangura Medications Current Medications Medication Drug Class(es) Dates Sig (Normalized) Sig (Original) Daily Multi (2 sources) Start: 07-23-2017 take 1 tablet by mouth once daily Daily Multi Dose = 1 tab(s), Oral, qDay Start Date: 07/23/17 Status: Ordered Fiber (2 sources) Start: 07-23-2017 Fiber Lax 1 Tablespoon, Oral, Daily Start Date: 07/23/17 Status: Ordered lamoTRIgine 200 mg disintegrating oral tablet (5 sources) Mood Stabilizer, Anti-epileptic Agent Start: 07-23-2017 lamoTRIgine 200 mg oral tablet, disintegrating Dose : 200 mg = 1 tab(s), Oral, BID Start Date: 07/23/17 Status: Ordered Completed/Discontinued Medications Medication Drug Class(es) Dates Sig (Normalized) Sig (Original) 1 ML risankizumab-rzaa 150 MG/ML Prefilled Syringe [Skyrizi] (1 source) Start: 11-08-2023 Skyrizi 150 mg/mL subcutaneous solution Dose : 150 mg = 1 mL, Subcutaneous, q4wk, rotate injection sites, 0 Refill(s) Start Date: 11/08/23 Status: Ordered benztropine mesylate 1 mg oral tablet (3 sources) Anticholinergic, Antihistamine Start: 05-22-2019 take 1 tablet by mouth twice daily benztropine (COGENTIN) 1 mg tablet Take 1 mg by mouth twice daily. 0 05/22/2019 Active Problems Problem Classification Problem Date Documented Date Episodic/Chronic Anxiety disorders (1 source) Anxiety disorder; Translations: [Anxiety disorder, unspecified] Chronic Delirium, dementia, and amnestic and other cognitive disorders (3 sources) Dementia; Translations: [Unspecified dementia without behavioral disturbance] Onset: 01-06-2022 Chronic Esophageal disorders (2 sources) Gastroesophageal reflux disease 07-23-2017 Chronic Hepatitis (1 source) Viral hepatitis C 07-26-2014 Episodic Results Test Name Value Interpretation Reference Range Facil ity Encounters Encounter Date Encounter Type Care Provider Facility Start: 11-12-2023 End: 11-13-2023 ambulatory DARREL BARTON APRN-AJAY Facility:B Start: 11-12-2023 End: 11-12-2023 Patient encounter procedure DARREL BARTON APRN-AJAY [facility] Start: 11-12-2023 End: 11-12-2023 Well adult monitoring check done DARREL BATRON APRN-REGIONAL DRIVER [facility] Start: 08-23-2023 End: 08-24-[address] DEVON SWIFT MD Facility:B Start: 08-23-2023 End: 08-23-[address] DEVON SWIFT MD [facility] Start: 05-03-2023 End: 05-04-[address] DEVON SWIFT MD Facility:B Start: 08-28-2022 Telephone encounter Kimberli Sierra APRN.REGIONAL DRIVER Work Phone: Neurology Procedures Date Procedure Procedure Detail Performing Clinician Start: 02-24-2022 Adult depression screening assessment Ric Pete PhD Work Phone: Start: 02-08-2022 Adult depression screening assessment Ric Pete PhD Work Phone: Start: 11-26-2013 Knee region structur e (body structure) DR DEVON SWIFT MD Plan of Treatment Date Care Activity Detail Author Start: 06-26-2030 Urine microalbumin profile DTA P,TDAP,TD (2 - Td or Tdap) [facility] Start: 06-29-2026 PROSTATE CANCER SCRE ENING DISCUSSION PROSTATE CANCER SCREENING DISCUSSION [facility] Start: 01-06-2025 DIABETES SCREEN DIABETES SCREEN [facility] Start: 02-24-2023 Adult depression scr eening assessment DEPRESSION SCREENING [facility] Start: 02-08-2023 Adult depression scr eening assessment DEPRESSION SCREENING [facility] Start: 07-27-2022 Influenza vaccination INFLUENZA (#1) [facility] Start: 06-29-2022 PNEUMOCOCCAL: 65+ (2 - PCV) PNEUMOCOCCAL: 65+ (2 - PCV) [facility] Start: 11-26-2021 ADVANCE DIRECTIVE DISCUSSION ADVANCE DIRECTIVE DISCUSSION [facility] Start: 11-26-2021 DEPRESSION ASSESSMENT DEPRESSION ASS ESSMENT [facility] Start: 10-26-2021 COVID-19 VACCINE (4 - Booster for Pfizer series) COVID-19 VACCINE (4 - Booster for Pfizer series) [facility] Start: 2000 COLOGUARD (FIT-DNA) COLOGUARD (FIT-D NA) [facility] Start: 2000 Colonoscopy COLONOSCOPY [facility] Start: 2000 COLORECTAL CANCER SCREENING COLORECTAL CANCER SCREENING [facility] Start: [address] COLONOGRAPHY [facility] Start: 2000 FECAL OCCULT BLOOD FECAL OCCULT BLOO D [facility] Start: 2000 SIGMOIDOSCOPY SIGMOIDOSCOPY [facility] Start: 1990 LIPID SCREEN LIPID SCREEN [facility] Start: 1973 HEPATITIS C SCREENING HEPATITIS C SC AGGIE [facility] Start: 1955 ABDOMINAL AORTIC ANE URYSM SCREENING ABDOMINAL AORTIC ANEURYSM SCREENING [facility] Immunizations Immunization Date Immunization Notes Care Provider Shital fritz 09-28-2021 influenza (aIIV4) vaccine, age 65+ yr, quadrivalent, PF (FLUAD QUADRIVALENT) Ric Pete PhD Work Phone: [facility] 06-29-2021 pneumococcal polysaccharide vaccine, 23 valent Ric Pete PhD Work Phone: [facility] 06-26-2020 influenza, injectabl e, quadrivalent, preservative free Ric Tapscott PhD Work Phone: [facility] 06-26-2020 tetanus toxoid, redu td diphtheria toxoid, and acellular pertussis vaccine, adsorbed Ric Pete PhD Work Phone: [facility] 10-07-2019 zoster vaccine recombinant Ric Tapscott PhD Work Phone: [facility] 07-26-2019 Influenza, injectabl e, Madin [place] Canine Kidney, preservative free, quadrivalent Ric Tapscott PhD Work Phone: [facility] 07-26-2019 zoster vaccine recombinant Ric Tapscluis a PhD Work Phone: [facility] 07-23-2018 influenza, injectabl e, quadrivalent, preservative free Ric Tapscott PhD Work Phone: [facility] 07-13-2018 influenza, seasonal, injectable Ric Tapscott PhD Work Phone: [facility] 09-05-2017 influenza, injectabl e, quadrivalent, preservative free Ric Tapscott PhD Work Phone: [facility] 09-07-2016 influenza, injectabl e, quadrivalent, preservative free Ric Tapscott PhD Work Phone: [facility] 09-24-2015 influenza, injectabl e, quadrivalent, preservative free Ric Tapscott PhD Work Phone: [facility] 08-26-2013 influenza, seasonal, injectable Ric Pete PhD Work Phone: [facility] Payers Date Payer Category Payer Medicare HUMANA MEDICARE HUMANA GOLD PLUS [id number] 2017-Present [phone] [address] [address] [place] [address] HMO [id number] 2017 Medicare HUMANA MEDICARE HUMANA GOLD PLUS [id number] 2017-Present [phone] [address] [address] [place] [address] HMO [id number] 2017 Private Health Insurance [id number] 1955 Unknown [id number] 1955 Unknown [id number] 1955 Unknown [id number] Social History Date Type Detail Facility Start: 02-24-2020 End: 11-08-2023 Tobacco smoking status AKIS Ex-smoker [facility] Start: 02-24-2020 Tobacco use and exposure Smoke less tobacco non-user [facility] Start: 02-15-2022 End: 03-03-2022 Alcohol intake Ex-drinker (finding) [facility] Start: 1955 Sex Assigned At Male C [facility] Start: 02-05-2022 End: 03-03-2022 Exposure to SARS-CoV-2 (event) Not sure [facility] History of tobacco use Current smoker [facility] Sex Assigned At Sex Aulthi n [facility] Medical Equipment Procedure Code Equipment Code Equipment Origin al Text Equipment Identifier Dates Joint - Knee-04/26/2019 [id number] Start: 04-26-2019 Clinical Notes 01-06-2022 to 08-23-2023 Telephone Encounter - Chery Cloud LPN - 08/28/2022 5:05 PM EDTTelephone Encounter - Judy Paige RN - 08/28/2022 10:27 AM EDArt Pete, PhD - 03/03/2022 1:45 PM EDT Note Date & Type Note Facility 08-23-2023 Evaluation + Plan note Diagnostic Tests [facility] Lab Send out (Blood Specimens) 08/23/23 [facility] 08-28-2022 Miscellaneous Notes Information faxed. Chery Cloud LPN Jessica with the [facility] called in and reports they need the most recent notes and psych testing. She reports the fax # is [phone]. documented in this encounter [facility] 03-03-2022 Note HNO ID: [id number] Author: Ric Pete, PhD Service: ? Author Type: Psychologist Type: Progress Notes Filed: 03/03/2022 3:16 PM Note Text: [facility] Department of Psychiatry and Behavioral Sciences Outpatient Neuropsychological Evaluation Report Name: Isaiah Burton Jr. Referred by: Kimberli Boo APRN, REGIONAL DRIVER Date of Interview: 02/15/2022 Date of : 1955 Date of Testin02/15/2022 Age: 66 Date of Feedback: 03/03/2022 Handedness: Right Date of Report: 03/03/2022 Examiner: Ric Pete, PhD Reason for Referral: Mr. Isaiah Burton Jr. is a 66-year-old, , white, male with 12-years of education referred for a neuropsychological evaluation for memory problems with concern for dementia. Verbal informed consent was obtained prior to the evaluation following a discussion of the nature of the evaluation, test procedures, risks and benefits, professional records, and confidentiality. The following was obtained through a clinical interview with Mr. Burton and his , who provided most of the background information, and a review of his electronic medical record. Presenting Problem AND Background Information: Mr. Burton?s reported that memory problems began suddenly in July 2021. He reportedly saw his PCP in June 2021 and did not have any cognitive issues at that time. The onset was not associated with anything specific, per her report. She first noticed that he didn?t seem to understand how to open up a container of ice cream and soon after she noticed that he was having problems with short-term memory including forgetting conversations and repeating himself. His long-term memory is ?not great? but not as severe as short-term memory problems. She has also noticed that he has word finding problems, attention problems, and it takes him longer to process information. Other cognitive symptoms were denied. Symptoms may be a little worse since onset but she was not sure. Other people have noticed that he seems different and have expressed concern. He has a history of Bipolar Disorder, and has been more withdrawn, quiet, and apathetic lately. He has not had any odd changes in his behavior or personality. He denied visual or auditory hallucinations. He has had mild symptoms of tardive dyskinesia for many years but no new motor symptoms/changes. He denied changes in vision, taste, or smell. He thinks he could use an updated hearing test. He has mild headaches but denied other pain. He denied incontinence. He described his mood as ?very depressed? and his shared that the current depressive episode is worse than previous episodes. He sits in a chair all day and doesn?t do much else. He sleeps often. He does not snore or have other sleep issues. He has low energy and very little appetite. She has to encourage him to eat or otherwise he won?t. Multiple people close to him have recently including his mother (03/2021), 2 uncles, and his [id number]. His psychiatrist is on maternity leave and they are not sure when she will be back. He last met with her about 1 month ago for an appointment over the phone. She has reportedly been trying to decrease his lorazepam. Of note, he also reported an 80 lb weight loss over the last year. Per EMR, since 07/16 he has lost 25 lbs. Functionally, he stopped driving recently at the recommendation of Dr. Bender. He manages his medications himself without any issues, although his does not check. She took over the finances about 4 or 5 years ago but they were not sure why she started doing them, but maybe it was related to difficulty concentrating. She handles all the case picker and this is longstanding. Sometimes she asks him to do the laundry and he is able to do this without any issues. They order their groceries online and go pick them up together. He is independent for basic ADL?s. He was seen by Dr. Bender on 01/06/22 and MoCA was . His recent labs were unremarkable. Recent brain MRI was read as showing only minimal presumed chronic microvascular ischemic changes without focal atrophy (of note, coronal images were not available for review). Medical History: PAST MEDICAL HISTORY Diagnosis Date - Bipolar disorder (HCC) - Depression - Diverticulosis - Dysphagia - Esophagitis - GERD (gastroesophageal reflux disease) - Hemorrhoids - Hiatal hernia - History of colonic polyps - History of hepatitis C treated [id number], PegIntron, Rebetrol - Neuropathy - PUD (peptic ulcer disease) -Reported a concussion 2 years ago when slipped on ice and hit head, head CT was normal. -No history of stroke or seizure -Gabapentin for neuropathy Current Medications: Patient?s reported the following medications. Trazodone 100 mg, Olanzapine 20 mg, Lorazepam 1 mg (once daily on T, Th, Sat; ? tab on Sun, Mon, Fri; None on Sun), Lamotrigine 150 mg, (more content not included)... [facility] 03-03-2022 History of Present illness Narrative [facility] Department of Psychiatry and Behavioral Sciences Outpatient Neuropsychological Evaluation Report Name: Isaiah Burton Jr. Referred by: Kimberli Boo APRN, CNP Date of Interview: 02/15/2022 Date of : 1955 Date of Testin02/15/2022 Age: 66 Date of Feedback: 03/03/2022 Handedness: Right Date of Report: 03/03/2022 Examiner: Ric Pete, PhD Reason for Referral: Mr. Isaiah Burton Jr. is a 66-year-old, , white, male with 12-years of education referred for a neuropsychological evaluation for memory problems with concern for dementia. Verbal informed consent was obtained prior to the evaluation following a discussion of the nature of the evaluation, test procedures, risks and benefits, professional records, and confidentiality. The following was obtained through a clinical interview with Mr. Burton and his , who provided most of the background information, and a review of his electronic medical record. Presenting Problem & Background Information: Mr. Burton s reported that memory problems began suddenly in July 2021. He reportedly saw his PCP in June 2021 and did not have any cognitive issues at that time. The onset was not associated with anything specific, per her report. She first noticed that he didn t seem to understand how to open up a container of ice cream and soon after she noticed that he was having problems with short-term memory including forgetting conversations and repeating himself. His long-term memory is not great but not as severe as short-term memory problems. She has also noticed that he has word finding problems, attention problems, and it takes him longer to process information. Other cognitive symptoms were denied. Symptoms may be a little worse since onset but she was not sure. Other people have noticed that he seems different and have expressed concern. He has a history of Bipolar Disorder, and has been more withdrawn, quiet, and apathetic lately. He has not had any odd changes in his behavior or personality. He denied visual or auditory hallucinations. He has had mild symptoms of tardive dyskinesia for many years but no new motor symptoms/changes. He denied changes in vision, taste, or smell. He thinks he could use an updated hearing test. He has mild headaches but denied other pain. He denied incontinence. He described his mood as very depressed and his shared that the current depressive episode is worse than previous episodes. He sits in a chair all day and doesn t do much else. He sleeps often. He does not snore or have other sleep issues. He has low energy and very little appetite. She has to encourage him to eat or otherwise he won t. Multiple people close to him have recently including his mother (03/2021), 2 uncles, and his [id number]. His psychiatrist is on maternity leave and they are not sure when she will be back. He last met with her about 1 month ago for an appointment over the phone. She has reportedly been trying to decrease his lorazepam. Of note, he also reported an 80 lb weight loss over the last year. Per EMR, since 07/16 he has lost 25 lbs. Functionally, he stopped driving recently at the recommendation of Dr. Bender. He manages his medications himself without any issues, although his does not check. She took over the finances about 4 or 5 years ago but they were not sure why she started doing them, but maybe it was related to difficulty concentrating. She handles all the case picker and this is longstanding. Sometimes she asks him to do the laundry and he is able to do this without any issues. They order their groceries online and go pick them up together. He is independent for basic ADL s. He was seen by Dr. Bender on 01/06/22 and MoCA was 15. His recent labs were unremarkable. Recent brain MRI was read as showing only minimal presumed chronic microvascular ischemic changes without focal atrophy (of note, coronal images were not available for review). Medical History: PAST MEDICAL HISTORY Diagnosis Date Bipolar disorder (HCC) Depression Diverticulosis Dysphagia Esophagitis GERD (gastroesophageal reflux disease) Hemorrhoids Hiatal hernia History of colonic polyps History of hepatitis C treated [id number], PegIntron, Rebetrol Neuropathy PUD (peptic ulcer disease) -Reported a concussion 2 years ago when slipped on ice and hit head, head CT was normal. -No history of stroke or seizure -Gabapentin for neuropathy Current Medications: Patient s reported the following medications. Trazodone 100 mg, Olanzapine 20 mg, Lorazepam 1 mg (once daily on T, Th, Sat; tab on Sun, Mon, Fri; None on Sun), Lamotrigine 150 mg, Benztropine 1mg, Gabapentin 100 mg. Relevant Developmental, Educational & Occupational History: Mr. Burton reported that his developmental history is unremarkable. He graduated high school and was an A/B student. He did not attend college. He denied problems with learning or reading as a child. He denied special education or academic retention. He denied problems with attention or hyperactivity/impulsivity as a child. 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 Relevant Psychiatric & Substance Use History: Mr. Burton reported he was diagnosed with Bipolar Disorder about 25-years ago. He has 3 prior hospitalizations for sachin, the last was about 4 years ago. He follows with psychiatry and has not had a manic episode in several years. He reported a history of alcohol abuse, and drank to intoxication nearly every day for 20 years. He stopped drinking cold turkey about 7 years ago. He denied SI/HI or previous attempts. He denied past or current AH/VH. He denied a history of drug use. He smoked 1 pack per day from 16 to 60 years of age. He drinks about 3 cups of coffee per day. Relevant Social & Legal History: Mr. Burton was born in [place], [place] and grew up in [place], [place]. He has 1 older sister and 1 younger half-brother. His parents when he was [id number]. He is (45 years) and has 2 daughters who live fairly close ([place] and [place]). He sees his daughters often. It is just him and his in the home. He reported good social support. He reported 1 prior DUI. He is a monolingual Slovenian speaker. He denied any service. Relevant Family History: Notable for Alzheimer s disease (2 maternal uncles 1 developed symptoms in his 60 s or 70 s and in his 80 s, the other developed symptoms in his 80 s). His mother had a history of Bipolar Disorder and had a stroke and was diagnosed with dementia (presumably vascular dementia). His father had CHF and emphysema and had memory problems near the end of his life but was not formally diagnosed with dementia. His siblings do not have any known memory problems. Mental Status & Behavioral Observations: Consciousness: Awake and alert Dress: Casual Grooming: Adequate Prosthetic Devices: Glasses Motor: Significant psychomotor retardation Speech: Limited spontaneous speech but fluent and articulate Comprehension: Unclear- in conversation he was able to answer direct questions but had some difficulty understanding task instructions during testing and required repetition of instructions Reliable Informant: No, history primarily gathered from his Orientation: Fully oriented to person, place, and situation; partially oriented to time (incorrectly stated month as February); his general fund of knowledge was intact Mood: Very depressed Affect: Flat, depressed Thought Process: Difficult to assess with limited spontaneous speech Thought Content: Difficult to assess but no overt evidence of delusional thinking Hallucinations: Denied Suicidal Ideation: Denied Homicidal Ideation: Denied Insight: Unclear Rapport: Adequate Behavior: Pt presented as a limited historian. He required repetition of instructions on almost every task administered (usually 2 or 3 times). The examiner often had the patient explain his understanding of the instructions to check understanding (which he was able to do). He attempted all tasks administered and generally persisted with challenging tasks (with encouragement). Procedures: Clinical Interview & Record Review; Test of Premorbid Functioning (TOPF); Repeatable Battery for the Assessment of Neuropsychological Status (Figure Copy, Line Orientation, Coding); [place] Making Test, Parts A & B; Neuropsychological Assessment Battery (NAB: Digits Forward, Digits Backward, Naming, Story Learning); Kimble Verbal Learning Test-Revised (HVLT-R); Brief Visuospatial Memory Test-Revised (BVMT-R); Controlled Oral Word Association Test (FAS); Category Fluency (Animals); Complex Ideational Material ([place] Diagnostic Aphasia Exam); Clock Drawing; Geriatric Depression Scale Short Form (GDS-SF); Geriatric Anxiety Scale 10 item (GAS); Quick Dementia Rating System (QDRS); Neuropsychiatric Symptom Inventory Questionnaire (NPI-Q); A Random Letter Test; Dot Counting Test (DCT). NOTE: To protect against COVID-19, testing was conducted with appropriate PPE, which deviates from standard administration. While every effort was made to minimize the impact of PPE on test results, the diagnostic conclusions and recommendations for treatment provided in this report are being advanced with these reservations. Test Results: All performance validity indicators were in the valid range, and the results are viewed as an accurate estimate of his current level of cognitive functioning. A summary of individual test scores can be found at the end of the report. Significant test findings are discussed below. The TOPF was average and, when viewed together with his educational and occupational history, estimated general abilities are viewed as likely in the average range (possibly the lower end of average). Neuropsychological testing was notable for below expected performance on tests of processing speed, verbal fluency, visuospatial abilities, executive functions, and memory. Of note, his performance on visuospatial tests was notable for poor attention to detail on complex figure copy drawing and near misses no judgement of line orientation, but there was not strong evidence of ramona visuospatial impairment. He performed within expectation on tests of auditory attention and working, and confrontation naming. His memory profile was characterized by impaired encoding and storage. On self-report measures, he screened positive for anxiety and depression. His characterized him as functioning at a moderate dementia level, although in follow-up discussion some of her ratings were more related to depression than cognitive impairment. On the NPI-Q she reported that neuropsychiatric symptoms include severe dysphoria/depression, apathy/indifference, reduced appetite, and moderate anxiety, which causes mild to extreme caregiver distress. Clinical Impressions: Neuropsychological testing was notable for below expected performance on tests of processing speed, verbal fluency, visuospatial abilities, executive functions, and memory. His memory profile was characterized by impaired encoding and storage. He screened positive for depression and anxiety on self-report measures. On an informant rating scale his reported that he has moderate to severe symptoms of depression, apathy, anxiety, and reduced appetite, and characterized him as functioning at a moderate dementia level, although some of her ratings were more related to depression than cognitive impairment. Taken together, he appears to be at about a mild dementia level of functioning. Etiology is unclear. The pattern on neuropsychological testing was consistent with frontal-subcortical dysfunction and a memory storage problem, which is concerning for Alzheimer s disease. However, he did not demonstrate all aspects of the classic pattern of AD (e.g., normal confrontation naming, sematic fluency better than phonemic fluency). They reported that memory problems developed suddenly, but I do wonder if cognitive symptoms were present before then and went unnoticed (particularly given his psychiatric history). He does have a family history of AD. His recent MRI was read as showing only minimal chronic microvascular ischemic changes. Depression/Bipolar Disorder is likely contributing to his cognitive problems, and some research suggests that patients with Bipolar Disorder experience neuroprogression of psychiatric illness. However, the level of impairment on testing is generally more severe than would be expected from a solely psychiatric etiology. Medication effects may also be contributing (particularly lorazepam, gabapentin, trazodone), and he is encouraged to follow up with psychiatry about reducing or discontinuing problematic medications. He reported an 80 lb weight loss over the last year, but it is unclear if this is directly related to depression or his cognitive problems. He is encouraged to follow up with his PCP about the unexplained weight loss. They may want to see gastroenterology for a consult. His lab work was unremarkable. Mr. Burton should repeat neuropsychological testing in about 9 to 12 months to assess for stability vs decline, which will help clarify etiology. Diagnostic Impressions: Unspecified Dementia Bipolar Disorder Unspecified Anxiety Disorder Recommendations: 1. Follow up with neurology, psychiatry, and primary care. 2. Repeat neuropsychological testing in 9 to 12 months using the present results as a baseline. 3. Family is encouraged to provide increased support and supervision as needed. 4. Mr. Burton should continue to not drive. 5. Mr. Burton is encouraged to stay physically, socially, and cognitively active to the extent possible. 6. Mr. Burton should get an updated hearing test. Follow-Up: The test findings, clinical impressions, and recommendations were discussed with Mr. Burton, his , and their daughter. They reported that the patient s memory problems are about the same since the testing appointment, but they recently noticed that he has been having difficulty using the remote control. They have not been able to see psychiatry since the testing appointment and will try to schedule something soon. They were given an opportunity to ask questions and indicated that they understood the results of the evaluation and recommendations. They were provided a list of my recommendations and were encouraged to contact me if they have any questions in the future. It was a pleasure participating in the care of Mr. Burton. Please contact me if you have any questions about the evaluation ([phone]). Ric Pete, PhD Clinical Neuropsychologist Test Summary This score sheet is provided for the convenience of other professionals. It accompanies a written report and should not be interpreted without reference to the report. Test scores are relative to age, gender, and education as available and appropriate. Scores are reported as follows: SCORES MEAN STANDARD DEVIATION Standard Scores 100 15 Scaled Scores 10 3 T Scores 50 10 Z Scores 0 1 Test of Premorbid Functioning (TOPF) Standard Score TOPF 91 Kimble Verbal Learning Test-Revised (HVLT-R) T Score Trial 1 28 Trial 2 ?20 Trial 3 ?20 Total Recall ?20 Delayed Recall ?20 Retention ?20 Recognition Discrimination Index ?20 Brief Visuospatial Memory Test-Revised (BVMT-R) T Score Percentile Trial 1 35 Trial 2 23 Trial 3 22 Total Recall 23 Learning 35 Delayed Recall 22 Percent Retained 3-5 Recognition Hits 6-10 Recognition False Alarms 6-10 Recognition Discrimination Index 3-5 Neuropsychological Assessment Battery (NAB) Memory Module Subtest T Score Percentile Story Learning Phrase Unit Immediate Recall 25 Story Learning Phrase Unit Delayed Recall 35 Story Learning Percent Retention (100%) 75 Neuropsychological Assessment Battery (NAB) Attention Module Subtest T Score Digits Forward 73 Digits Backward 51 Neuropsychological Assessment Battery (NAB) Language Module Subtest T Score Naming 45 Repeatable Battery for the Assessment of Neuropsychological Status (Form A) Index Standard Score Visuospatial/Constructional 66 Subtest Scaled Score Cumulative Percentage Figure Copy 6 Line Orientation ? 2 Coding 2 Verbal Fluency (Mitrushina) T Score Phonemic Fluency (F-A-S) 24 Semantic Fluency 32 [place] Making Test (Mitrushina) T Score Trails A <20 Trails B DC Complex Ideational Material (Abhilash) Raw = 6/12 T = <20 Clock Drawing Test Total Score = 8/10 (borderline impaired) A Random Letter Test (0 errors) HVLT-R RD = 6 Dot Counting Test: E-Score = 16 Rating Scales Total Score GDS-SF 7 GAS-10 8 QDRS 16 Services associated with this evaluation: 02/15/2022: 26497 x 60 minutes 48078 x 30 minutes 85275 x 120 minutes 03/03/2022: 36963 x 60 minutes 94604 x 180 minutes documented in this encounter [facility] 02-15-2022 Note HNO ID: [id number] Author: Ric Pete, PhD Service: ? Author Type: Psychologist Type: Progress Notes Filed: 02/15/2022 11:53 AM Note Text: [facility] Department of Psychiatry AND Behavioral Sciences Outpatient Neuropsychological Evaluation Name: Isaiah Burton Jr. Date of : 1955 Age: 66 Date of Evaluation: 02/15/2022 Mr. Burton was seen today for a clinical interview and neuropsychological testing. He was accompanied by his who provided most of the history. The following tests were administered today: Test of Premorbid Functioning (TOPF) Repeatable Battery for the Assessment of Neuropsychological Status (Figure Copy, Line Orientation, Coding) [place] Making Test, Parts A AND B Neuropsychological Assessment Battery (NAB: Digits Forward, Digits Backward, Naming, Story Learning) Kimble Verbal Learning Test-Revised (HVLT-R) Brief Visuospatial Memory Test-Revised (BVMT-R) Controlled Oral Word Association Test (FAS) Category Fluency (Animals) Complex Ideational Material ([place] Diagnostic Aphasia Exam) Clock Drawing Geriatric Depression Scale ? Short Form (GDS-SF) Geriatric Anxiety Scale ? 10 item (GAS) Quick Dementia Rating System (QDRS) Neuropsychiatric Symptom Inventory Questionnaire (NPI-Q) ?A? Random Letter Test Dot Counting Test (DCT). Full report to follow. Return appointment to discuss the results of the evaluation currently scheduled for 03/03/2022 at 2:00 pm. Ric Pete, PhD Clinical Neuropsychologist Services associated with this encounter: 83854 x 60 minutes 69807 x 30 minutes 34745 x 120 minutes [facility] 02-15-2022 History of Present illness Narrative [facility] Department of Psychiatry & Behavioral Sciences Outpatient Neuropsychological Evaluation Name: Isaiah Burton Jr. Date of : 1955 Age: 66 Date of Evaluation: 02/15/2022 Mr. Burton was seen today for a clinical interview and neuropsychological testing. He was accompanied by his who provided most of the history. The following tests were administered today: Test of Premorbid Functioning (TOPF) Repeatable Battery for the Assessment of Neuropsychological Status (Figure Copy, Line Orientation, Coding) [place] Making Test, Parts A & B Neuropsychological Assessment Battery (NAB: Digits Forward, Digits Backward, Naming, Story Learning) Kimble Verbal Learning Test-Revised (HVLT-R) Brief Visuospatial Memory Test-Revised (BVMT-R) Controlled Oral Word Association Test (FAS) Category Fluency (Animals) Complex Ideational Material ([place] Diagnostic Aphasia Exam) Clock Drawing Geriatric Depression Scale Short Form (GDS-SF) Geriatric Anxiety Scale 10 item (GAS) Quick Dementia Rating System (QDRS) Neuropsychiatric Symptom Inventory Questionnaire (NPI-Q) A Random Letter Test Dot Counting Test (DCT). Full report to follow. Return appointment to discuss the results of the evaluation currently scheduled for 03/03/2022 at 2:00 pm. Ric Pete, PhD Clinical Neuropsychologist Services associated with this encounter: 48029 x 60 minutes 40656 x 30 minutes 95306 x 120 minutes documented in this encounter [facility] 01-27-2022 Note HNO ID: [id number] Author: Kimberli Boo APRN.AJAY Service: ? Author Type: Nurse Practitioner Type: Progress Notes Filed: 01/30/2022 1:04 PM Note Text: [facility] [place] Follow-up Visit Follow-up note January 27, 2022 HPI: Mr. Burton presents today for a follow-up visit. Per his previous visit with Dr. Gamino on 01/06/22: ASSESSMENT/PLAN: 1. Dementia without behavioral disturbance, unspecified dementia type (HCC) - ICD9: 294.20, ICD10: F03.90 Patient with cognitive decline of uncertain etiology. Per history provided this has been rapid and progressive over the past year, although I cannot verify that symptoms may have been present prior to then. Dx d/w pt and his . Explained ddx that would include the following at this time: ? -Pseudodementia given history of depression and bipolar. -Medication effect with pt on multiple meds that could act as PAYROLL ACCOUNTING MANAGER depressants. -Metabolic etiology such as thyroid dz, B12 deficiency and/or other such as hyperammonemia secondary to meds. -Intracranial etiology such as stroke given gait disturbance or NPH also given gait disturbance (denies bladder incontinence). Vascular cause would further be supported by rapid onset and progression by history. -Progressive neurodegenerative disorder such as Alzheimer's (further supported by family history). ? Will not start on meds today, with first wanting to narrow dx. Thus will order the following: ? - TSH BLD - T4 FREE/FREE THYROX - COMP METABOLIC PANEL - AMMONIA BLD - VITAMIN B12 BLOOD - METHYLMALONIC ACID - LAMOTRIGINE - MRI BRAIN WO IVCON ? Encouraged brain exercises. Advised patient not to drive or operate heavy machinery given his cognitive impairment. ? Encouraged follow up with psychiatry to see if sedative meds might possibly be reduced. ? Pt will follow up after MRI brain. Since his previous appointment there have been no further changes. His notes that he has continued to lose weight. His states his confusion has been about the same. Pt currently with no appetite and reports that weight loss have happened very quickly. Weight loss has happened over the past year or possibly less. Has lost 80lbs. Not currently up to date on colonoscopy or other testing. His does most of the cooking. Maybe eats one meal per day. Not currently driving. Not forgetting family members names. Will typically sit in the chair and watch tv. Has not been doing words puzzles. No walking or other form of exercise. His reports generalized weakness. Reports slurred speech and difficulty finding words. Denies numbness or tingling. Drinks water throughout the day but notes urine has been dark. Denies falls. Had knee replacement so states he has some difficulty walking. Tasks with trash bag or other kitchen tasks have stayed about the same; still completed with some difficulty. Denies tremor. Denies acting out dreams or yelling out in his sleep. States handwriting has been bad. Psychiatrist has been on maternity leave. Unsure when she returns from leave. Goes to [facility]. Currently weaning off Ativan. No currently taking Trazodone. MOCA on 01/06/22 TOTAL: PAST MEDICAL HISTORY Diagnosis Date - Bipolar disorder (HCC) - Depression - Diverticulosis - Dysphagia - Esophagitis - GERD (gastroesophageal reflux disease) - Hemorrhoids - Hiatal hernia - History of colonic polyps - History of hepatitis C treated [id number], PegIntron, Rebetrol - Neuropathy - PUD (peptic ulcer disease) PAST SURGICAL HISTORY Procedure Laterality Date - COLONOSCOPY 02/23/2014 Grade 1 ext hemorrhoids, mild diverticulosis, 2 benign polyps - COLONOSCOPY 06/11/2003 normal exam - EGD 09/21/2015 normal exam, neg biopsy - EGD 09/21/2015 Grade B esophagitis, bile reflux gastritis, mild chronic inflammation, neg H Pylori - EGD 05/31/2015 food bolus, Grade C esophagitis, hiatal hernia - EGD 02/23/2014 gastritis, reflux related changes, neg H Pylori - EGD DILATION 09/28/2006 GERD, non-obstructing Schatzki's ring, esophageal mucosal tear - LAMINECTOMY W/O FFD 1/2 VERT SEG LUMBAR 09/04/2017 - LIVER BIOPSY 02/22/2001 chronic hepatitis, Grade II, Stage I-Hepatitis C - PAST SURGICAL HISTORY OF Right orif - PAST SURGICAL HISTORY OF Left knee scope x 3. 1985, 1999, 2018. - PAST SURGICAL HISTORY OF neck surg broken neck Current Outpatient Medications on File Prior to Visit Medication Sig - gabapentin (NEURONTIN) 100 mg capsule Take 1 capsule by mouth four times daily. - pantoprazole DR (PROTONIX) 40 mg tablet TAKE 1 TABLET BY MOUTH DAILY - benztropine (COGENTIN) 1 mg tablet Take 1 mg by mouth twice daily. - OLANZapine (ZYPREXA) 15 mg tablet Take 15 mg by mouth once daily. - ibuprofen (MOTRIN) 200 mg tablet - hydrOXYzine HCl (ATARAX) 25 mg tablet Take 25 mg by mouth. - lamoTRIgine (LAMICTAL) 200 mg tabl (more content not included)... [facility] 01-23-2022 Note HNO ID: [id number] Author: RT Kassandra(R) Service: ? Author Type: Technologist Type: Progress Notes Filed: 01/23/2022 8:35 AM Note Text: Radiology Service Progress Note PATIENT NAME: Isaiah Burton Jr. DATE OF SERVICE: January 23, 2022 TIME: 8:34 AM PATIENT IDENTITY VERIFICATION COMPLETED USING TWO (2) IDENTIFIERS: Name and Date of confirmed by patient verbally. FALL SCREENING: Has the patient had 2 falls in the last year or 1 fall with injury or currently using an Ambulatory Assistive Device (Walker, Cane, Wheelchair, Crutches, etc.)? No PATIENT GENDER DATA: Male PATIENT RELEVANT IMPLANT DATA REVIEWED: Yes RADIOLOGY DEPARTMENT: MR; Exam(s) Completed: Head: Routine Brain PERIPHERAL IV DATA: Not applicable SIGNED BY: RT Kassandra(R) January 23, 2022 8:34 AM [facility] 01-06-2022 Note HNO ID: [id number] Author: Cullen Gamino Jr., MD Service: ? Author Type: Physician Type: Progress Notes Filed: 01/06/2022 3:14 PM Note Text: NEW PATIENT (CONSULT) HISTORY AND PHYSICAL EXAM PRIMARY CARE PHYSICIAN: Dion Hurley REASON FOR CONSULT: Dementia REFERRING PHYSICIAN: Self CHIEF COMPLAINT: Memory loss Consultation requested by Self for an opinion regarding chief complaint of Patient presents with: New Brain Health: Consult for memory loss and my final recommendations will be communicated back to the requesting physician by way of shared medical record or letter via US mail. HISTORY OF PRESENT ILLNESS: Isaiah Burton Jr. is a 66 year old male, BMI 21.56 kg/m2 with a PMH significant for bipolar and depression as well as concussion last winter resulting from fall on the ice (landed on back of head). His reports that patient will start to say something and then immediately gone. Patient can't recall things told to him shortly before. Sleeps all the time. Reports no appetite and losing weight. Doesn't care about looks and self care. Not driving at night but still driving during the day. Has become lost while driving. They state psychiatry was the one who recommended pt see a neurologist. He has never had forma neurocognitive testing. States that psychiatrist has been adjust meds frequently. Patient was on antipsychotics in the past. He has been on meds for bipolar disorder for years. Physical exam in 06/2021 and there is reportedly no mention of dementia -- rather it has come on so quickly. Patient has gone from someone who was quite active to staying in bed or watching tv all day. Reports constipation but no loss of bladder control. Denies tremors. No other falls reported. No issues getting dressed. In kitchen cannot do tasks such as tying a trash bag or open a box of something. Some slurred speech. No loc, but episodes in which he does not respond to conversation. No results found for: TSH No results found for: B12 MOCA Immediate recall: 0/5 first try; 2/5 (2nd try) Repeat numbers: 1/2 (unable to do reverse order) Repeat sentences: 1/2 Serial 7s: 100/93/? 1/3 Namin/3 Cube Drawin/1 A-1-B-2...: 0/1 Clock Drawing: Does not place hands on clock correctly 2/3 Similar objects: 1 Delayed recall: 0/5 Orientation: 01/06/2022, Franchesca, Biden 05/01 A Tap: 0/ Fluency (F) 0 TOTAL: Father and mother with history of Alzheimer's Disease (unknown how dx'd). No hallucinations. REVIEW OF SYSTEMS GENERAL:No weight loss, malaise or fevers. HEENT:Negative for frequent or significant headaches, No changes in hearing or vision, no nose bleeds or other nasal problems NECK:Negative for lumps, goiter, pain and significant neck swelling RESPIRATORY: Negative for cough, wheezing or shortness of breath. CARDIOVASCULAR: Negative for chest pain, leg swelling or palpitations. GASTROINTESTINAL: Negative for abdominal discomfort, blood in stools or black stools or change in bowel habits GENITOURINARY: No history of dysuria, frequency or incontinence MUSCULOSKELETAL: Negative for joint pain or swelling, back pain or muscle pain. NEUROLOGIC:Negative for focal numbness or weakness, headaches and dizziness or syncope, vision changes, speech/language changes, changes in gait or falls -- besides those complaints as above in HPI. SKIN:Negative for lesions, rash, and itching. PSYCHIATRIC: Negative for sleep disturbance, mood disorder and recent psychosocial stressors. HEMATOLOGIC/LYMPHATIC/IMMUNOLOGIC :Negative for prolonged bleeding, bruising easily or swollen nodes. ENDOCRINE: Negative for cold or heat intolerance, polyuria, polydipsia and goiter. The remainder of the ROS was reviewed and is negative. LAB/IMAGING: Reviewed and include: WBC (thou/cmm) Date Value 09/05/2017 10.46 (H) RBC (mil/cmm) Date Value 09/05/2017 4.40 (L) HGB (g/dL) Date Value 09/05/2017 13.3 (L) Hematocrit (%) Date Value 09/05/2017 41.4 MCV (fl) Date Value 09/05/2017 94.1 MCH (pg) Date Value 09/05/2017 30.2 MCHC (%) Date Value 09/05/2017 32.1 (L) Platelet Count (thou/cmm) Date Value 09/05/2017 248 MPV (fl) Date Value 09/05/2017 11.1 Glucose (mg/dL) Date Value 09/05/2017 113 (H) BUN (mg/dL) Date Value 09/05/2017 7 Creatinine (mg/dL) Date Value 09/05/2017 0.93 Sodium (mEq/L) Date Value 09/05/2017 139 Potassium (mEq/L) Date Value 09/05/2017 4.2 Chloride (mEq/L) Date Value 09/05/2017 105 CO2 (mEq/L) Date Value 09/05/2017 27 Calcium (mg/dL) Date Value 09/05/2017 8.6 MEDICATIONS: gabapentin (NEURONTIN) 100 mg capsule Take 1 capsule by mouth four times daily. benztropine (COGENTIN) 1 mg tablet Take 1 mg by mouth twice daily. OLANZapine (ZYPREXA) 15 mg tablet Take 15 mg by mouth once daily. ibuprofen (MOTRIN) 200 mg tablet lamoTRIgine (LAMICTAL) 200 mg tablet Take 200 mg by (more content not included)... [facility] Diagnosis Dementia without behavioral disturbance, unspecified dementia type (HCC)- Primary Bipolar affective disorder, remission status unspecified (HCC) Anxiety disorder, unspecified type documented in this encounter [facility] course Narrative No data available for this section [facility] Hospital Discharge instructions No data available for this section [facility] Progress note No data available for this section [facility] Summary Purpose Family History No Family History Records FoundNo Family History Records FoundNo Family History Records FoundNo Family History Records FoundNo Family History Records FoundNo Family History Records Found No data available for this section No data available for this section No Family History Records Found Advance Directives No Advanced Directives Records FoundDocuments on File Type Date Recorded Patient Finisher Hand Expl anation Advance Directive(s) 05/03/2020 8:01 AM Advance Directive(s) 09/04/2017 6:51 AM Additional Source Comments (unrecognized sect ion and content) No Status Records FoundNo Status Records FoundNo Status Records FoundNo Status Records FoundNo Status Records FoundNo Status Records FoundNo Status Records Found INFORMATION SOURCE (unrecogn ized section and content) DATE CREATED AUTHOR AUTHOR'S ORGANIZ ATION 06/03/2019 [facility] [employer] DATE CREATED AUTHOR AUTHOR'S ORGANIZ ATION 05/05/2020 [facility] DATE CREATED AUTHOR AUTHOR'S ORGANIZ ATION 03/06/2022 [facility] DATE CREATED AUTHOR AUTHOR'S ORGANIZ ATION 08/30/2022 [facility] DATE CREATED AUTHOR AUTHOR'S ORGANIZ ATION 10/12/2022 [facility] [employer] [facility] DATE CREATED AUTHOR AUTHOR'S ORGANIZ ATION 11/13/2023 [facility] ([place]) Source Comments (unrecognize d section and content) In the event this informatio n is protected by the Federal Confidentiality of Alcohol and Drug Abuse Patient Records regulations: The Federal rules restrict any use of the information to criminally investigate or prosecute any alcohol or drug abuse patient.[facility] the event this information is protected by the Federal Confidentiality of Alcohol and Drug Abuse Patient Records regulations: The Federal rules restrict any use of the information to criminally investigate or prosecute any alcohol or drug abuse patient.[facility] the event this information is protected by the Federal Confidentiality of Alcohol and Drug Abuse Patient Records regulations: The Federal rules restrict any use of the information to criminally investigate or prosecute any alcohol or drug abuse patient.[facility] Reason for Visit (unrecogniz ed section and content) Specialty Diagnoses / Procedures Referred By Contac t Referred To Contact Psychology / PSYCHIATRY Diagnoses Unspecified dementia without behavioral disturbance New Patient/Dementia Procedures NEUROBEHAVIORAL STATUS XM PHYS/QHP 1ST HOUR NEUROPSYCHOLOGICAL TST EVAL PHYS/QHP 1ST HOUR NEUROPSYCHOLOGICAL TST EVAL PHYS/QHP EA ADDL HR PSYL/NRPSYCL TST PHYS/QHP 2+ TST 1ST 30 MIN PSYCL/NRPSYCL TST PHYS/QHP 2+ TST EA ADDL 30 MIN TESTING Kimberli Boo, TANK HOUSE OPERATOR HELPER.REGIONAL DRIVER [address] [place] [address] Ric Pete, PhD [address] [facility] [address] [place] [address] Referral ID Status Reason Start Date Expiration Date Visits Re quested Visits Authorized [id number] Closed 02/15/2022 11/25/2022 2 2 Reason Comments Neuropsych Testing Referral ID Status Reason Start Date Expiration Date V isits Requested Visits Authorized [id number] Authorized 02/15/2022 11/25/2022 2 2 Reason Comments Fax Recent notes and Psych testing Care Teams (unrecognized sec tion and content) [employer] Relationship Specialty Start Date End Date Mei Dion [address] [address] PCP - General Family Practice 08/02/17 [employer] Relationship Specialty Start Date End Date Eleonoramyalake Dion [address] [address] PCP - General Family Medicine 08/02/17 FOR RECORDS PERTAINING TO PATIENTS WHO ARE OR HAVE BEEN ENROLLED IN A CHEMICAL DEPENDENCY/SUBSTANCEABUSE PROGRAM, SOME INFORMATION MAY BE OMITTED. This clinical summary was aggregated from multiple sources. Caution should be exercised in using it in the provision of clinical care. This summary normalizes information from multiple sources, and as a consequence, information in this document may materially change the coding, format and clinical context of patient data. In addition, data may be omitted in some cases. CLINICAL DECISIONS SHOULD BE BASED ON THE PRIMARY CLINICAL RECORDS. [facility] [employer] [facility]. provides no warranty or guarantee of the accuracy or completeness of information in this document.
[2023-12-26] MEDS: Lactated Ringers 1,000 ML 15 ML IV (07:00)
[2023-12-26 07:03] VITALS: BP 131/80; PULSE 82; RESP 16; TEMP 36.8; O2SAT 100; BMI 25.7
--- NOTE | 2023-12-26 08:00 | EGD_PTH ---
PATHOLOGY RESULTS PATIENT: SADIQ YI Jr. LOC: EN U#:[id number] AGE/SX: 68/M ROOM: RE12/26/[address]: Dr. Lior Lira DO : 1955 BED: DIS: 12/26/2023 SPEC #: [id number] RECD: 12/26/23 11:31 STATUS: EDDIE ERNIE #: [id number] MEGAN: 12/26/23 08:[address]: Lior Lira DEPT: SURGICAL PATHOLOGY RECD BY: Barbi Bills ENTERED: 12/26/23 11:31 SP TYPE: EGD BIOPSY OT DR: DARREL BARTON, FINISHED [employer]-C Tissues: Esophageal mucous membrane Procedures: Special Stain Group II Surgery Specimen Level IV Alcian Blue/PAS (control) HEADER OPERATION: EGD, biopsy, dilatation PRE-OP DIAGNOSIS: Dysphagia TISSUE SUBMITTED: Distal esophagus biopsy MICROSCOPIC DIAGNOSIS Distal esophagus, biopsy: Gastroesophageal junctional mucosa with mild chronic inflammation. 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 No evidence of dysplasia. Focal changes of reflux. See comment. AM:bethel 12/27/2023 COMMENT Alcian blue/PAS stain with matched control supports the above diagnosis. Immunohistochemistry ([id number]) for P53 and Ki-67 will be performed and results will be reported separately. MICROSCOPIC DESCRIPTION Slides are reviewed. GROSS DESCRIPTION Received in fixative is one container labeled with the patient's name and designated distal esophagus. The specimen consists of multiple irregular fragments of light rashid soft tissue that in aggregate measure 1.0 x 0.3 x 0.1 cm. The specimen is totally submitted in one cassette. / SJ:bethel 12/26/2023 TC:3 CPT: 70492, 21746
--- NOTE | 2023-12-26 08:02 | HP.PCM_ITS ---
History and Physical Date of Admission: 12/26/23 67 M who presents to the office today for discussion of EGD results. EGD was indicated for ongoing dysphagia. Dr Lira had dilated a Schatzki ring in 08/2022; dysphagia improved but didn't resolve. Pt had food bolus then. He remains on pantoprazole 40 mg bid. 01/2023 EGD revealed moderate Schatzki ring which Dr Lira dilated to 60 Fr; today pt reports no dysphagia. He does c/o lots of post nasal drainage, no relief with mucinex, asks for other treatment, gets nausea from the drainage. Bowels are moving well with stool softener and metamucil. He declined screening colonoscopy. 02/08/23 EGD Impression: ? 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 the esophagus. Biopsied. ? - Moderate Schatzki ring. Dilated. ? - Normal stomach. ? - Normal first portion of the duodenum. ? Biopsied. MICROSCOPIC DIAGNOSIS Gastric inlet, biopsy: Gastroesophageal junctional mucosa with mild chronic inflammation. No evidence of goblet cell metaplasia. Negative H pylori ROS Const Constitutional: Positive for weakness; No fatigue ENT ENT: No difficulty swallowing Cardio Cardiology: Positive for leg pain with exertion Gastro GI: No abdominal pain, belching, bloating, change in bowel habits, change in stool character, coffee ground emesis, constipation, cramping, diarrhea, heartburn, difficulty swallowing, feeling full early, excessive flatus, incontinent of stools, Vomiting blood/hematemesis, Blood in stool, loose stools, Black,tarry stools, nausea/dyspepsia, pain with swallowing, vomiting or other Musc Musculoskeletal: Positive for joint pain, back pain, joint swelling, numbness, stiffness, tingling, Arthritis, restless legs, leg pain at night and leg pain with exertion Skin Skin: No yellowing of the eye or itchy eyes Neuro Neurology: Positive for weakness, numbness, tingling and restless legs Psych Psychiatric: Positive for anxiety, Positive for depression and Positive for Beh avioral Problems Endo Endocrine: No fatigue Aller/Imm Allergy/Immunologic: No itchy eyes Shekhar/Lymp Hematologic/Lymphatic: No easy bleeding or easy bruising Exam Const General: cooperative and comfortable Nutritional Appearance: thin Orientation: alert, awake and oriented x3 Quality Reporting Tobacco Screening ([facility] 138) Smoking Status: Former smoker Assessment and Plan Assessment and Plan (1) Dysphagia: Status: Resolved Plan: Reviewed his EGD findings, no pathologic change on bx, no longer has dysphagia. Continue pantoprazole 40 mg bid. Rx for fluticasone nasal spray for this rhinitis. f/u one yr. (2) GERD (gastroesophageal reflux disease): Status: Chronic Plan: as above Medications: New fluticasone propionate 50 mcg/actuation administer into each nostril 1 spray intranasal Q12H 16 grams 2RF I have examined the patient and the H&P has been reviewed. There are no clinical changes since date of exam.
[2023-12-26 08:20] VITALS: BP 113/70; BP 131/80; PULSE 58; RESP 16; TEMP 36.4; O2SAT 95
--- NOTE | 2023-12-26 08:21 | OP.CCLET_ITS ---
12/26/2023 Fabián Hurley Re : Upper GI endoscopy procedure for Isaiah Burton Dear Mei This procedure was performed on Tuesday, December 26, 2023. My impressions and recommendations are as follows: Impressions : - Z-line irregular, 40 cm from the incisors. Biopsied. - Moderate Schatzki ring. Dilated. - Small hiatal hernia. - Normal second portion of the duodenum. Recommendations : - Discharge patient to home. - Resume previous diet. - Continue present medications. - Await pathology results. My findings are described in the full procedure note, which is enclosed. If I can be of further assistance, please feel free to contact me at . Sincerely, Lior Lira, 12/26/2023 8:20:59 AM This report has been signed electronically.
--- NOTE | 2023-12-26 08:21 | OP.EGD_ITS ---
Patient Name: Isaiah Burton Procedure Date: 12/26/2023 7:59 AM Date of : 1955 Age: 68 Procedure: Upper GI endoscopy Indications: Dysphagia Providers: Lior Lira DO Medicines: Monitored Anesthesia Care Patient Profile: This is a 68 year old male. Refer to note in patient chart for documentation of history and physical. Patient has symptoms of dysphagia with solids. Complications: No immediate complications. Procedure: Pre-Anesthesia Assessment: - Prior to the procedure, a History and Physical was performed, and patient medications and allergies were reviewed. The patient is competent. The risks and benefits of the procedure and the sedation options and risks were discussed with the patient. All questions were answered and informed consent was obtained. Patient identification and proposed procedure were verified by the physician in the pre-procedure area. Mental Status Examination: alert and oriented. Airway Examination: normal oropharyngeal airway and neck mobility. Respiratory Examination: clear to auscultation. CV Examination: normal. Prophylactic Antibiotics: The patient does not require prophylactic antibiotics. Prior Anticoagulants: The patient has taken no anticoagulant or antiplatelet agents. ASA Grade Assessment: II - A patient with mild systemic disease. After reviewing the risks and benefits, the patient was deemed in satisfactory condition to undergo the procedure. The anesthesia plan was to use monitored anesthesia care (MAC). Immediately prior to administration of medications, the patient was re-assessed for adequacy to receive sedatives. The heart rate, respiratory rate, oxygen saturations, blood pressure, adequacy of pulmonary ventilation, and response to care were monitored throughout the procedure. The physical status of the patient was re-assessed after the procedure. After obtaining informed consent, the endoscope was passed under direct vision. Throughout the procedure, the patient's blood pressure, pulse, and oxygen saturations were monitored continuously. The Endoscope was introduced through the mouth, and advanced to the second part of duodenum. The upper GI endoscopy was accomplished without difficulty. The patient tolerated the procedure well. Scope In: 8:09:44 AM Scope Out: 8:15:37 AM Total Procedure Duration Time 0 hours 5 minutes 53 seconds Findings: The Z-line was irregular and was found 40 cm from the incisors. Biopsies were taken with a cold forceps for histology. Verification of patient identification for the specimen was done. Estimated blood loss was minimal. A moderate Schatzki ring was found at the lower esophageal sphincter. A guidewire was placed and the scope was withdrawn. Dilation was performed with a Savary dilator with no resistance at 60 Fr. The dilation site was examined and showed moderate mucosal disruption. Estimated blood loss was minimal. A small hiatal hernia was present. No other significant abnormalities were identified in a careful examination of the stomach. The second portion of the duodenum was normal. Abnormal motility was noted in the esophagus. The cricopharyngeus was abnormal. There are extra peristaltic waves in the esophageal body. The distal esophagus/lower esophageal sphincter is spastic, but gives up passage to the endoscope. Impression: - Z-line irregular, 40 cm from the incisors. Biopsied. - Moderate Schatzki ring. Dilated. - Small hiatal hernia. - Normal second portion of the duodenum. Recommendation: - Discharge patient to home. - Resume previous diet. - Continue present medications. - Await pathology results. Procedure Code(s): --- Professional --- 14839, Esophagogastroduodenoscopy, flexible, transoral; with insertion of guide wire followed by passage of dilator(s) through esophagus over guide wire 78236, 59, Esophagogastroduodenoscopy, flexible, transoral; with biopsy, single or multiple CPT copyright 2021 [employer]. All rights reserved. The codes documented in this report are preliminary and upon professional fee coder review may be revised to meet current compliance requirements. Lior Lira DO 12/26/2023 8:20:59 AM This report has been signed electronically. Number of Addenda: 0 Note Initiated On: 12/26/2023 7:59 AM
[2023-12-26 08:25] VITALS: BP 121/74; BP 131/80; PULSE 67; RESP 16; O2SAT 98
[2023-12-26 08:30] VITALS: BP 123/74; BP 131/80; PULSE 59; RESP 16; O2SAT 99
[2023-12-26 08:35] VITALS: BP 131/80; BP 136/79; PULSE 62; RESP 16; TEMP 36.6; O2SAT 98
[2023-12-26 08:53] VITALS: BP 131/80
--- NOTE | 2023-12-27 | IMM_PTH ---
PATHOLOGY RESULTS PATIENT: SADIQ YI Jr. LOC: EN U#:[id number] AGE/SX: 68/M ROOM: RE12/26/[address]: Dr. Lior Lira DO : 1955 BED: DIS: 12/26/2023 SPEC #: [id number] RECD: 12/27/23 11:31 STATUS: EDDIE REAnnette #: [id number] MEGAN: 12/27/23 00:[address]: Lior Lira DEPT: IMMUNOHISTOCHEMISTRY RECD BY: Barbi Bills ENTERED: 12/27/23 11:32 SP TYPE: IMMUNO OTHR DR: DARREL BARTON, CEZAR-Raghav Tissues: Esophageal mucous membrane Procedures: P53 (initial) KI-67 (add) MOC-31 (add) PHYSICIAN & INSTITUTION [address] [address] SPECIMEN INFORMATION: Tissue Source: Distal esophagus Clinical Info: Dysphagia Specimen Number: [id number] CPT code: 24222, 56752 x2 METHODOLOGY: Deparaffinized sections of prefer/formalin-fixed tissue or PAP/DQ stained slides are incubated with monoclonal/polyclonal antibodies/oligonucleotide probes. Localization is made via biotin free immunoperoxidase method. Appropriate controls are performed and reacted as expected. Results on target cell population are indicated in the following table: RESULTS: ANTIBODY / CLONE RESULT P53 (DO-7) positive, wild type pattern Ki-67 (30-9) positive MOC-31 (4561) positive These tests were developed and their performance characteristics determined by [facility]. They may not have been cleared or approved by the U.S. Food and Drug Administration. The FDA has determined that such clearance or approval is not necessary. The above immunohistochemical/dualISH markers are ordered and reviewed by the Pathologist. INTERPRETATION: Distal esophagus, biopsy: No evidence of dysplasia. AM:bethel 12/28/2023
== END 2023-12-26 09:05 | disposition home or self-care (01) ==
LOC: EN 06:50 → AC 06:51
PROVIDERS: PCP Nurse Practitioner Family; Referring Provider Nurse Practitioner Family; Visit Provider Internal Medicine Gastroenterology
PROC: 0DJ08ZZ Inspection of Upper Intestinal Tract, Via Natural or Artificial Opening Endoscopic (ICD-10-PCS; CPT 43235; principal; 2023-12-26 07:55)
DX: R13.10 Dysphagia, unspecified (principal); K44.9 Diaphragmatic hernia without obstruction or gangrene; K21.9 Gastro-esophageal reflux disease without esophagitis
CPT/HCPCS: 43248; 43239; 81002; 88305; 88313; 88341; 88342; J7120; C1769; J2405

== ENCOUNTER → 2024-02-15 | Outpatient (CLI) | payer MEDICARE, SELFPAY ==
[2024-02-18 15:08] LABS: Gastrin, Serum 27 pg/mL (0-115)
== END | disposition home or self-care (01) ==
LOC: LAB 14:09
PROVIDERS: PCP Nurse Practitioner Family; Referring Provider Internal Medicine Gastroenterology; Visit Provider Internal Medicine Gastroenterology
DX: K21.9 Gastro-esophageal reflux disease without esophagitis (principal)
CPT/HCPCS: 36415; 82941

== ENCOUNTER → 2024-04-18 | Outpatient (CLI) | payer MEDICARE, SELFPAY ==
--- NOTE | 2024-04-18 10:29 | NM_ITS ---
CLINICAL: 68-year-old male with history of gastroesophageal reflux disease. SEMI-SOLID PHASE 99m Tc SULFUR COLLOID GASTRIC EMPTYING STUDY COMPARISON: None available FINDINGS: The patient was administered 1.2 mCi of 99m Tc sulfur colloid mixed with oatmeal and consumed per os. Image acquisitions in the anterior-posterior projections were obtained for 60 minutes. There is prompt visualization of the stomach. There is no gastroesophageal reflux identified. The T ? raw data emptying was calculated to be 35.08 minutes, (Normal: 12-56 minutes). NM/Gastric Emptying Study IMPRESSION: 1. NORMAL 99m Tc sulfur colloid semi-solid phase (oatmeal) gastric emptying imaging examination. A. There is normal and preserved semi-solid phase gastric emptying compared to normal controls. (Jaylyn et al, J Nucl Med Tech 38: 186, 2010). Electronically Signed: Isaiah Bonilla DO at 8:30 EDT ,
== END | disposition home or self-care (01) ==
PROVIDERS: PCP Nurse Practitioner Family; Referring Provider Internal Medicine Gastroenterology; Visit Provider Internal Medicine Gastroenterology
DX: K21.9 Gastro-esophageal reflux disease without esophagitis (principal)
CPT/HCPCS: 78264; A9541

== ENCOUNTER → 2024-07-24 | Outpatient (CLI) | payer MEDICARE, SELFPAY ==
[2024-07-24 09:46] LABS: Absolute Lymphocyte Count 1.33 X10^3/uL (0.83-4.51); Absolute Neutrophil Count 4.9 X10^3/uL (2.0-7.7); Basophil# 0.05 X10^3/uL; Basophil% 0.7 % (0-1); Eosinophil# 0.07 X10^3/uL; Hemoglobin 14.1 g/dL (13.0-16.5); Lymphocyte # 1.33 X10^3/ul (0.83-4.51); Lymphocyte % 19.8 % (19-41); Mean Corp Hgb Conc 32.8 g/dL (32-36); Mean Corpuscular Hgb 30.5 pg (27.0-32.0); Mean Corpuscular Volume 93.1 fL (80-94); Mean Platelet Vol. 11.7 fl (6.2-12.0); Monocyte# 0.36 X10^3/uL; Monocyte% 5.4 % (0-10); NRBC Flagged by Analyzer 0 % (0-5); Platelet Count 247 K/mm3 (150-450); RBC Distribution Width CV 14.5 % (11.6-14.6); RBC Distribution Width SD 49.8 fl (35.1-43.9); Red Blood Count 4.62 M/mm3 (4.6-6.2); White Blood Count 6.7 K/mm3 (4.4-11.0)
[2024-07-24 10:09] LABS: Hemoglobin A1c 5.3 % (3.8-5.6)
[2024-07-24 10:13] LABS: ALB/GLOB Ratio 1.1 RATIO (0.9-2.4); AST(SGOT) 18 U/L (15-37); Alanine Aminotransfer ALT/SGPT 15 U/L (16-61); Albumin, Serum 3.8 g/dL (3.2-5.0); Alkaline Phosphatase 62 U/L (45-117); Anion Gap 5 (5-15); BUN 14 mg/dL (7-18); BUN/Creat Ratio 11.2 RATIO (10-20); Bilirubin, Direct 0.17 mg/dL (0.00-0.30); Calcium,Total 9.4 mg/dL (8.5-10.1); Chloride 106 mmol/L (98-107); Cholesterol 178 mg/dL (200); Creatinine, Serum 1.25 mg/dL (0.70-1.30); EST Glomerular Filtration Rate 61 mL/min (>60); Est Glom Filt Rate - Afr Amer 74 mL/min (>60); Globulin 3.5 g/dL (2.2-4.2); Glucose 99 mg/dL (74-106); High Density Lipoprotein 72 mg/dL; Potassium 4.1 mmol/L (3.5-5.1); Protein, Total 7.3 g/dL (6.4-8.2); Sodium Level 140 mmol/L (136-145); Triglycerides 69 mg/dL; Very Low Density Lipoprotein 14 mg/dL (5-40)
[2024-07-24 11:04] LABS: Hepatitis C Antibody Reactive (Nonreactive)
[2024-07-26 18:07] LABS: PROLACTIN 14.8 ng/mL (3.6-25.2); QNTFERON TB Mitogen Value > 10.00 IU/mL (.); QNTFERON TB Nil Value 0.01 IU/mL (.); QNTFERON TB1+ Ag Value 0.01 IU/mL (.); QNTFERON TB2+ Ag Value 0.02 IU/mL (.); QNTIFERON TB Positive Criteria Negative (Negative)
== END | disposition home or self-care (01) ==
LOC: LAB 09:08
PROVIDERS: PCP Nurse Practitioner Family; Referring Provider Dermatology; Visit Provider Dermatology
DX: Z08 Encounter for follow-up examination after completed treatment for malignant neoplasm (principal); F31.9 Bipolar disorder, unspecified; Z79.899 Other long term (current) drug therapy; Z85.828 Personal history of other malignant neoplasm of skin; L40.0 Psoriasis vulgaris; L40.8 Other psoriasis; D22.5 Melanocytic nevi of trunk; L82.1 Other seborrheic keratosis; L57.8 Other skin changes due to chronic exposure to nonionizing radiation; Z71.89 Other specified counseling
CPT/HCPCS: 36415; 80053; 80061; 82248; 83036; 84146; 85025; 86480; 86803

== ENCOUNTER → 2025-02-24 | Outpatient (CLI) | payer MEDICARE, SELFPAY ==
[2025-02-24 12:25] LABS: Hematocrit 43.9 % (40-54); Hemoglobin 14.6 g/dL (13.0-16.5); Mean Corp Hgb Conc 33.3 g/dL (32-36); Mean Corpuscular Hgb 30.8 pg (27.0-32.0); Mean Corpuscular Volume 92.6 fL (80-94); Mean Platelet Vol. 12.1 fl (6.2-12.0); Platelet Count 260 K/mm3 (150-450); RBC Distribution Width CV 14.5 % (11.6-14.6); RBC Distribution Width SD 49.5 fl (35.1-43.9); Red Blood Count 4.74 M/mm3 (4.6-6.2); White Blood Count 7.3 K/mm3 (4.4-11.0)
[2025-02-24 12:56] LABS: Amphetamine Urine NEGATIVE (<1000 ng/mL); Barbiturate Urine NEGATIVE (< 200 ng/mL); Benzodiazepine Urine NEGATIVE (< 200 ng/mL); Buprenorphine Urine NEGATIVE (< 200 ng/mL); Cocaine Urine NEGATIVE (< 300 ng/mL); Fentanyl, Urine NEGATIVE; Methadone Urine NEGATIVE (< 300 ng/mL); Opiates Urine NEGATIVE (< 300 ng/mL); Oxycodone, Urine NEGATIVE (< 100 ng/mL); PCP Urine PRESUMPTIVE POSITIVE (< 25 ng/mL); THC Urine NEGATIVE (< 50 ng/mL)
[2025-02-24 12:57] LABS: Ammonia 15.8 umol/L (16-60)
[2025-02-24 13:02] LABS: ALB/GLOB Ratio 1.6 RATIO (0.9-2.4); AST(SGOT) 21 U/L (<=37); Alanine Aminotransfer ALT/SGPT 15 U/L (<=46); Albumin, Serum 4.5 g/dL (3.4-4.8); Alkaline Phosphatase 75 U/L (40-129); Anion Gap 11 (5-15); BUN 19 mg/dL (4-19); BUN/Creat Ratio 16.1 RATIO (10-20); Calcium,Total 9.4 mg/dL (7.6-11.0); Carbon Dioxide 27.1 mmol/L (21.0-32.0); Chloride 106 mmol/L (98-108); Creatinine, Serum 1.18 mg/dL (0.70-1.20); EST Glomerular Filtration Rate 67 (>60); Globulin 2.9 g/dL (2.2-4.2); Glucose 93 mg/dL (70-99); Potassium 4.5 mmol/L (3.3-5.1); Protein, Total 7.4 g/dL (5.9-8.4); Sodium Level 144 mmol/L (133-145); Thyroid Stim Hormone (TSH) 0.959 uIU/mL (0.300-4.200); Total Bilirubin 0.24 mg/dL (0.00-1.30); Vitamin B12 679 pg/mL (180-914)
== END | disposition home or self-care (01) ==
LOC: MTLAB 09:45
PROVIDERS: PCP Nurse Practitioner Family; Referring Provider Psychiatry & Neurology Neurology; Visit Provider Psychiatry & Neurology Neurology
DX: G62.9 Polyneuropathy, unspecified (principal); G31.84 Mild cognitive impairment of uncertain or unknown etiology; F10.11 Alcohol abuse, in remission
CPT/HCPCS: 36415; 80053; 80307; 82140; 82542; 82607; 82747; 83883; 84425; 84443; 85014; 85027

== ENCOUNTER → 2025-09-14 | Outpatient (CLI) | payer MEDICARE, SELFPAY ==
[2025-09-14 14:58] LABS: Hematocrit 42.4 % (40-54); Hemoglobin 14.1 g/dL (13.0-16.5); Mean Corp Hgb Conc 33.3 g/dL (32-36); Mean Corpuscular Volume 93.2 fL (80-94); Mean Platelet Vol. 12.3 fl (6.2-12.0); Platelet Count 269 K/mm3 (150-450); RBC Distribution Width CV 14.6 % (11.6-14.6); RBC Distribution Width SD 49.7 fl (35.1-43.9); Red Blood Count 4.55 M/mm3 (4.6-6.2); White Blood Count 7.7 K/mm3 (4.4-11.0)
[2025-09-14 15:15] LABS: Ammonia 15.8 umol/L (16-60)
[2025-09-14 15:23] LABS: AST(SGOT) 20 U/L (<=37); Alanine Aminotransfer ALT/SGPT 14 U/L (<=46); Albumin, Serum 4.4 g/dL (3.4-4.8); Alkaline Phosphatase 69 U/L (40-129); Anion Gap 10 (5-15); BUN 14 mg/dL (4-19); BUN/Creat Ratio 13.0 RATIO (10-20); Calcium,Total 9.6 mg/dL (7.6-11.0); Carbon Dioxide 27.5 mmol/L (21.0-32.0); Chloride 103 mmol/L (98-108); Globulin 3.1 g/dL (2.2-4.2); Glucose 85 mg/dL (70-99); Magnesium 2.8 mg/dL (1.5-2.2); Potassium 4.1 mmol/L (3.3-5.1)
[2025-09-17 13:08] LABS: Vitamin D 1,25-Dihydroxy 57.1 pg/mL (24.8-81.5)
== END | disposition home or self-care (01) ==
LOC: MTLAB 11:05
PROVIDERS: PCP Nurse Practitioner Family; Referring Provider Psychiatry & Neurology Neurology; Visit Provider Psychiatry & Neurology Neurology
DX: F31.9 Bipolar disorder, unspecified (principal); G62.9 Polyneuropathy, unspecified
CPT/HCPCS: 36415; 80053; 82140; 82542; 82652; 83735; 83883; 84443; 85027